=== PATIENT | male | born 1930 | race Caucasian/White ===

== ENCOUNTER 2018-12-09 10:26 | Inpatient (IN) ==
--- NOTE | 2018-12-09 10:43 | ED ---
HPI General Chief Complaint: Chest Pain Stated Complaint: Chest pain Time Seen by Provider: 12/09/18 10:39 Source: patient and EMS Mode of arrival: EMS Limitations: no limitations History of Present Illness HPI narrative: 88-year-old male patient with history of hypertension, high cholesterol, and recent history of anemia, presents to the ER today because he states that he was supposed to get blood a few days ago but they did not have the type of blood he needed, and he woke up this morning having chest discomfort and abdominal discomforts which she currently rates at a 7 out of 10. He denies any black stools or blood in the stools. However, he does not want to talk to me further because he states that he is in pain and be bothered. Modifying Factors: None Associated Signs & Symptoms: Chest discomfort, abdominal discomfort Risk Factors: Recent history of anemia Related Data Home Medications Medication Instructions Recorded Confirmed diltiazem HCl 240 mg PO DAILY 12/06/18 12/09/18 levothyroxine 100 mcg PO DAILY 12/06/18 12/09/18 simvastatin 10 mg PO QPM 12/06/18 12/09/18 tamsulosin 0.4 mg PO HS 12/06/18 12/09/18 Allergies Allergy/AdvReac Type Severity Reaction Status Date / Time No Known Allergies Allergy Verified 12/09/18 10:37 Review of Systems ROS: all other systems reviewed are negative PMFSH History History Provided By: Patient Medical History Medical History Anemia (Acute) BPH (benign prostatic hyperplasia) (Acute) CKD (chronic kidney disease), stage III (Acute) Constipation (Acute) Hyperlipidemia (Acute) Hypertension (Acute) Hypothyroidism (Acute) Osteopenia (Acute) Peripheral neuropathy (Acute) Rhinorrhea (Acute) Skin cancer (Acute) Tortuous aorta (Acute) Social History Social History Substance History: No History of Abuse Smoking Status: Former smoker How Often Do You Have a Drink Containing Alcohol: Never Recent Travel in [facility] within the Last 8 Weeks: No Recent Out of Country Travel within the Last 8 Weeks: No Exam Narrative Exam Narrative: GENERAL: Well-developed elderly male patient currently and moderate distress, mildly agitated, awake, alert. SKIN: Focused skin assessment warm/dry. HEAD: Atraumatic. Normocephalic. EYES: Pupils equal and round. No scleral icterus. No injection or drainage. ENT: No nasal bleeding or discharge. Mucous membranes pink and moist. NECK: Trachea midline. No JVD. CARDIOVASCULAR: Regular rate and rhythm. No murmur appreciated. RESPIRATORY: No accessory muscle use. Clear to auscultation. Breath sounds equal bilaterally. GASTROINTESTINAL: Abdomen soft, non-tender, nondistended. Hepatic and splenic margins not palpable. RECTAL EXAM: No masses or tenderness, stool is brown. Hemoccult negative. MUSCULOSKELETAL: No obvious deformities. No clubbing. No cyanosis. No edema. NEUROLOGICAL: Awake and alert. No obvious cranial nerve deficits. Motor grossly within normal limits. Normal speech. PSYCHIATRIC: Mildly agitated mood and affect; insight and judgment poor. Procedures Hemaprompt Stool Procedural Steps Taken: specimen placed in appropriate test area, developer placed on specimen and control areas and controls appropriately positive and negative Hemaprompt Stool Result: negative Course Initial Documented Vital Signs Temperature 97.7 F 12/09/18 10:32 Pulse Rate 74 12/09/18 10:32 Respiratory Rate 16 12/09/18 10:32 Blood Pressure 123/72 12/09/18 10:32 Pulse Oximetry 100 12/09/18 10:32 Last Documented Vital Signs Temperature 97.7 F 12/09/18 10:32 Pulse Rate 73 12/09/18 11:43 Respiratory Rate 20 12/09/18 11:43 Blood Pressure 112/59 L 12/09/18 11:43 Pulse Oximetry 99 12/09/18 11:43 Medical Decision Making [facility] Narrative Medical decision making narrative: EKG does not show significant ST changes or dysrhythmias. His blood pressure is on the low side. His hemoglobin is 6.9, about the same as it was a few days ago. His Hemoccult is negative. Patient's son-in-law tells me that he has had some history of this anemia and they have not been able to find the source. Apparently he has a fairly unique blood type and antibodies and was not able to get the usual blood transfusion, is waiting until Tuesday to get it. At this point, transfusion was ordered for the patient and my plan would be to admit the patient for further evaluation. CT of the abdomen pelvis was also ordered for the patient for further evaluation. Case is discussed with Dr. Miller for admission. Medical Screen Exam Complete: Yes Emergency Medical Condition: Yes Differential Diagnosis Differential Diagnosis: Symptomatic anemia versus ACS versus dysrhythmias Lab Data Lab results reviewed: Yes I reviewed the patient's lab results. Result diagrams: 12/09/18 10:50 12/09/18 11:25 Lab Results 12/09/18 12/09/18 12/09/18 Range/Units 10:50 10:50 11:25 WBC 6.0 (4.0-11.0) th/mm3 RBC 1.94 L (4.50-5.90) mil/mm3 Hgb 6.9 L* (13.0-17.0) gm/dL Hct 20.6 L* (39.0-51.0) % MCV 105.8 H (80.0-100.0) fL MCH 35.3 H (27.0-34.0) pg MCHC 33.4 (32.0-36.0) % RDW 15.7 (11.6-17.2) % Plt Count 295 (150-450) th/mm3 MPV 7.8 (7.0-11.0) fL Neut % (Auto) 78.1 H (16.0-70.0) % Lymph % (Auto) 8.8 L (9.0-44.0) % Coal % (Auto) 6.8 (0.0-8.0) % Eos % (Auto) 5.2 H (0.0-4.0) % Baso % (Auto) 1.1 (0.0-2.0) % Neut # (Auto) 4.7 (1.8-7.7) th/mm3 Lymph # (Auto) 0.5 L (1.0-4.8) th/mm3 Coal # (Auto) 0.4 (0.0-0.9) th/mm3 Eos # (Auto) 0.3 (0.0-0.4) th/mm3 Baso # (Auto) 0.1 (0.0-0.2) th/mm3 WBC Differential . Differential Comment Auto diff final PT (9.8-11.6) sec INR Ratio APTT (23.4-31.7) sec Sodium 141 (136-145) meq/L Potassium 4.8 (3.5-5.1) meq/L Chloride 108 H (98-107) meq/L Carbon Dioxide 27.0 (21.0-32.0) meq/L Anion Gap 6 (5-15) meq/L BUN 27 H (7-18) mg/dL Creatinine 1.81 H (0.60-1.30) mg/dL Estimated GFR 36 L (>89) mL/min Random Glucose 102 (74-106) mg/dL Calcium 8.2 L (8.5-10.1) mg/dL Total Bilirubin 1.6 H (0.2-1.0) mg/dL AST 13 L (15-37) U/L ALT 11 L (12-78) U/L Alkaline Phosphatase 73 (45-117) U/L Troponin I Less than 0.02 L (0.02-0.05) ng/mL Total Protein 6.3 L (6.4-8.2) g/dL Albumin 3.6 (3.4-5.0) g/dL Blood Type O Positive Blood Type Recheck Not needed Prewarmed Antibody Srcn Positive H MTS Gel Crossmatch See Detail Crossmatch Prewarmed See Detail Bld Prod Order Comment 12/09/18 Range/Units 11:25 WBC (4.0-11.0) th/mm3 RBC (4.50-5.90) mil/mm3 Hgb (13.0-17.0) gm/dL Hct (39.0-51.0) % MCV (80.0-100.0) fL MCH (27.0-34.0) pg MCHC (32.0-36.0) % RDW (11.6-17.2) % Plt Count (150-450) th/mm3 MPV (7.0-11.0) fL Neut % (Auto) (16.0-70.0) % Lymph % (Auto) (9.0-44.0) % Coal % (Auto) (0.0-8.0) % Eos % (Auto) (0.0-4.0) % Baso % (Auto) (0.0-2.0) % Neut # (Auto) (1.8-7.7) th/mm3 Lymph # (Auto) (1.0-4.8) th/mm3 Coal # (Auto) (0.0-0.9) th/mm3 Eos # (Auto) (0.0-0.4) th/mm3 Baso # (Auto) (0.0-0.2) th/mm3 WBC Differential Differential Comment PT 11.1 (9.8-11.6) sec INR 1.1 Ratio APTT 25.4 (23.4-31.7) sec Sodium (136-145) meq/L Potassium (3.5-5.1) meq/L Chloride (98-107) meq/L Carbon Dioxide (21.0-32.0) meq/L Anion Gap (5-15) meq/L BUN (7-18) mg/dL Creatinine (0.60-1.30) mg/dL Estimated GFR (>89) mL/min Random Glucose (74-106) mg/dL Calcium (8.5-10.1) mg/dL Total Bilirubin (0.2-1.0) mg/dL AST (15-37) U/L ALT (12-78) U/L Alkaline Phosphatase (45-117) U/L Troponin I (0.02-0.05) ng/mL Total Protein (6.4-8.2) g/dL Albumin (3.4-5.0) g/dL Blood Type Blood Type Recheck Prewarmed Antibody Srcn MTS Gel Crossmatch Crossmatch Prewarmed Bld Prod Order Comment Imaging Data Attestation: I personally reviewed and interpreted this imaging study as follows : Radiologist's impression: Chest X-Ray 12/09/18 10:39 CONCLUSION: Significant tortuosity of the thoracic aorta and mild enlargement of the cardiac silhouette. The lungs are clear. ECG Data Attestation: I personally reviewed and interpreted this ECG as follows: Interpretation: EKG shows NSR, no ST elevation or depression, and no arrhythmias. No significant T-wave inversions. Discharge Plan Discharge Disposition Patient Disposition: ED Admit(ED Internal Use Only) Discharge Condition Condition: Fair Discharge Order Discharge Orders: ED Use Only Admit Order (Routine); Ordered 12/09/18 Ordered By: Abdulkadir Vela Discharge Details Anticipated Discharge Date: 12/09/18 Diagnosis: Atypical chest pain, Anemia Physicians Team ED Provider: Abdulkadir Vela Rxs /Orders / Referrals /Forms Prescriptions: No Action simvastatin 10 mg Tablet 10 mg PO QPM RF: 0 diltiazem HCl 240 mg Capsule,Extended Release 24 Hr 240 mg PO DAILY RF: 0 levothyroxine 100 mcg Tablet 100 mcg PO DAILY RF: 0 tamsulosin 0.4 mg Capsule 0.4 mg PO HS RF: 0 Discharge Instructions Patient Printed Instructions: Chest Pain (ED) Status ED Status: With Doctor
[2018-12-09 10:59] LABS: Baso # (Auto) 0.1 th/mm3 (0.0-0.2); Baso % (Auto) 1.1 % (0.0-2.0); Eos # (Auto) 0.3 th/mm3 (0.0-0.4); Eos % (Auto) 5.2 % (0.0-4.0); Lymph # (Auto) 0.5 th/mm3 (1.0-4.8); Lymph % (Auto) 8.8 % (9.0-44.0); Mean Corpuscular HGB Conc 33.4 % (32.0-36.0); Mean Corpuscular Hemoglobin 35.3 pg (27.0-34.0); Mean Corpuscular Volume 105.8 fL (80.0-100.0); Mean Platelet Volume 7.8 fL (7.0-11.0); Mono # (Auto) 0.4 th/mm3 (0.0-0.9); Mono % (Auto) 6.8 % (0.0-8.0); Neut # (Auto) 4.7 th/mm3 (1.8-7.7); Neut % (Auto) 78.1 % (16.0-70.0); Platelet Count 295 th/mm3 (150-450); Red Blood Count 1.94 mil/mm3 (4.50-5.90); Red Cell Distribution Width 15.7 % (11.6-17.2)
[2018-12-09] MEDS ORDERED: Sodium Chlor 0.9% Inj 250 ML IV.SIG SCH (11:00)
[2018-12-09 11:02] LABS: Hematocrit 20.6 % (39.0-51.0); Hemoglobin 6.9 gm/dL (13.0-17.0)
--- NOTE | 2018-12-09 11:18 | XR ---
EXAM DATE: 12/09/2018 11:13 AM EST AGE/SEX: 88 years / Male INDICATIONS: Chest pain. Abdominal pain. CLINICAL DATA: This is the patient's initial encounter. Patient reports that signs and symptoms have been present for 1 day and indicates a pain score of 9/10. MEDICAL/SURGICAL HISTORY: None. None. COMPARISON: No prior exams available for comparison. FINDINGS: AP portable upright view of the chest demonstrates severe tortuosity of the thoracic aorta. Heart siz e appears mildly enlarged. Lungs appear clear. Osseous structures are intact. Pulmonary vasculature a ppears normal. CONCLUSION: Significant tortuosity of the thoracic aorta and mild enlargement of the cardiac silhouette. The lung s are clear. Electronically signed by: Bibi Johnston MD Board Certified Radiologist 12/09/2018 11:17 AM SALAS Quinones
[2018-12-09] MEDS ORDERED: Morphine Sulfate Inj 2 MG/ML Vial IV.PUSH ONE (11:26)
[2018-12-09] MEDS ORDERED: Morphine Inj 4 MG/ML Vial IV.PUSH ONE (11:45)
[2018-12-09 11:47] LABS: Activated Partial Thrombo Time 25.4 sec (23.4-31.7); INR 1.1 Ratio; Prothrombin Time 11.1 sec (9.8-11.6)
[2018-12-09 11:55] LABS: Albumin 3.6 g/dL (3.4-5.0); Anion Gap 6 meq/L (5-15); Aspartate Aminotransferase 13 U/L (15-37); Blood Urea Nitrogen 27 mg/dL (7-18); Calcium 8.2 mg/dL (8.5-10.1); Chloride 108 meq/L (98-107); Glomerular Filtration Rate 36 mL/min (>89); Glucose,Random 102 mg/dL (74-106); Potassium 4.8 meq/L (3.5-5.1); Sodium 141 meq/L (136-145)
[2018-12-09 12:00] LABS: Alanine Aminotransferase 11 U/L (12-78); Alkaline Phosphatase 73 U/L (45-117); Total Protein 6.3 g/dL (6.4-8.2)
[2018-12-09] MEDS ORDERED: Acetaminophen 325 MG Tablet PO PRN (13:19)
--- NOTE | 2018-12-09 13:38 | P.HPIM ---
History of Present Illness Primary Care Physician: Golden Faria MD, PhD Chief Complaint: Abdominal pain, chest pain History of Present Illness: Mr. Smith is a pleasant 88 y/o WM with HTN, hyperlipidemia, hypothyroidism, CKD stage 3, anemia and peripheral neuropathy. Pt presented to the ED at [facility] on 12/09/18 with complaints of upper abdominal pain and some mild chest discomfort. He states that this morning around 0700 he woke up with abdominal discomfort but unable to really describe the pain. He does not feel that the abdomen is more distended than usual. Denies any nausea/ vomiting, diarrhea, constipation, fevers or chills. He reports a weight loss of around 20lbs over the last year or so but reports that he does not eat much. He states that he urinates frequently but this is a chronic issue. His chest discomfort is mild on the left side of the chest which does not radiate but it is reproducible with palpation of the chest wall. His labs in the ED noted his Hgb 6.6/Hct 20.8 and MCV 105. The anemia has been an ongoing issue for over the last year or so and has been slowly worsening. His most recent outpt labs on 11/30 noted Hgb was 6.6 with MCV 107. Pt had been planned for an outpt transfusion but this was unable to be arranged as an outpt last week and when the pt developed the abd pain and chest pain today this prompted the ED evaluation. Pt has had several negative FOBT and pt was recommended last year to start Procrit which he did not want to do. Pt has noted increased fatigue with ambulation. Pt denies any palpitations, dizziness, or SOB. Pt has declined outpt colonoscopy previously. Past Medical Hx: HTN Hyperlipidemia Hypothyroidism CKD, stage 3 Anemia Peripheral neuropathy BPH BPV Hx of skin cancer Spinal stenosis Past Surgical Hx: Cataract surgery bilaterally with Dr. Romeo Skin cancer removal Family Hx: Noncontributory Social Hx: Denies any alcohol, tobacco or illicit drug use Diagnosis (1) Anemia: (2) Atypical chest pain: (3) Abdominal pain: (4) Hyperlipidemia: (5) HTN (hypertension): Inpatient Certification Inpatient Certification: I certify that the inpatient services were ordered in accordance with Medicare regulations governing the order. This includes certification that hospital inpatient services are reasonable and necessary and in the case of services not specified as inpatient-only under 42 CFR 419.22(n), that they are appropriately provided as inpatient services in accordance to with the 2-midnight benchmark under 43 CFR 412.3(e) Estimated Total Length of Stay (Days): 2 Plans for Post Hospital Care: Home Medications and Allergies Allergies Allergy/AdvReac Type Severity Reaction Status Date / Time No Known Allergies Allergy Verified 12/09/18 10:37 Home Medications Medication Instructions Recorded Confirmed Type diltiazem HCl 240 mg PO DAILY 12/06/18 12/09/18 History levothyroxine 100 mcg PO DAILY 12/06/18 12/09/18 History simvastatin 10 mg PO QPM 12/06/18 12/09/18 History tamsulosin 0.4 mg PO HS 12/06/18 12/09/18 History Active Medications: Active Medications Acetaminophen (Tylenol) 650 mg PO Q4H PRN PRN Reason: Temp > 100.4 Al Hydroxide/Mg Hydroxide (Milk Of Ting Brownq) 30 ml PO Q12H PRN PRN Reason: Mild Constipation Sodium Chloride (Ns Inj) 250 mls @ 15 mls/hr IV.SIG ONCE TIMOTHY Stop: 12/10/18 03:39 Last Admin: 12/09/18 12:47 Dose: 15 mls/hr Ondansetron HCl (Zofran Inj) 4 mg IV.PUSH Q6H PRN PRN Reason: NAUSEA OR VOMITING Senna/Docusate Sodium (Melissa-Colace) 1 tab PO BID TIMOTHY Sodium Chloride (Ns Flush) 2 ml IV.FLUSH BID TIMOTHY Sodium Chloride (Ns Flush) 2 ml IV.FLUSH PRN PRN PRN Reason: FLUSH AFTER USING IV ACCESS Physical Exam Vital signs: Last Vital Signs Temp 98.2 F 12/09/18 12:59 Pulse 76 12/09/18 12:59 Resp 20 12/09/18 12:59 BP 133/61 12/09/18 12:59 Pulse Ox 100 12/09/18 12:59 Narrative: GENERAL: NAD, Awake and alert SKIN: Warm and dry. HEENT: Atraumatic. Normocephalic. Pupils equal and round. No scleral icterus. No injection or drainage. No nasal bleeding or discharge. Mucous membranes pink and moist. NECK: Trachea midline. No JVD. CARDIO: Regular rate and rhythm. Mild reproducible left chest wall pain with palpation RESP: No accessory muscle use. Clear to auscultation. Breath sounds equal bilaterally. ABD: +BS, soft, non-tender, nondistended. EXT: Extremities without clubbing, cyanosis, or edema. No obvious deformities. NEURO: Awake and alert. No obvious cranial nerve deficits. Motor grossly within normal limits. Five out of 5 muscle strength in the arms and legs. Normal speech. PSYCH: Appropriate mood and affect; insight and judgment normal. Results Labs CBC & Chem 7: 12/09/18 10:50 12/09/18 11:25 Imaging Chest X-Ray 12/09/18 10:39 CONCLUSION: Significant tortuosity of the thoracic aorta and mild enlargement of the cardiac silhouette. The lungs are clear. Caprini VTE Risk Assessment Caprini VTE Risk Assessment: Moderate/High Risk (score >= 2) Caprini Risk Assessment Model: Point Value = 1 Point Value = 2 Point Value = 3 Point Value = 5 Age 41-60 Minor surgery BMI > 25 kg/m2 Swollen legs Varicose veins or History of unexplained or recurrent spontaneous Oral contraceptives or hormone replacement Sepsis (< 1 month) Serious lung disease, including pneumonia (< 1 month) Abnormal pulmonary function Acute myocardial infarction Congestive heart failure (< 1 month) History of inflammatory bowel disease Medical patient at bed rest Age 61-74 Arthroscopic surgery Major open surgery (> 45 min) Laparoscopic surgery (> 45 min) Malignancy Confined to bed (> 72 hours) Immobilizing plaster cast Central venous access Age >= 75 History of VTE Family history of VTE Factor V Leiden Prothrombin [id number] Lupus anticoagulant Anticardiolipin antibodies Elevated serum homocysteine Heparin-induced thrombocytopenia Other congenital or acquired thrombophilia Stroke (< 1 month) Elective arthroplasty Hip, pelvis, or leg fracture Acute spinal cord injury (< 1 month) Prophylaxis Regimen: Total Risk Factor Score Risk Level Prophylaxis Regimen 0-1 Low Early ambulation 2 Moderate Order ONE of the following: *Sequential Compression Device (SCD) *Heparin 5000 units SQ BID 3-4 Higher Order ONE of the following medications: *Heparin 5000 units SQ TID *Enoxaparin/Lovenox 40 mg SQ daily (WT < 150 kg, CrCl > 30 mL/min) *Enoxaparin/Lovenox 30 mg SQ daily (WT < 150 kg, CrCl > 10-29 mL/min) *Enoxaparin/Lovenox 30 mg SQ BID (WT < 150 kg, CrCl > 30 mL/min) AND/OR *Sequential Compression Device (SCD) 5 or more Highest Order ONE of the following medications: *Heparin 5000 units SQ TID (Preferred with Epidurals) *Enoxaparin/Lovenox 40 mg SQ daily (WT < 150 kg, CrCl > 30 mL/min) *Enoxaparin/Lovenox 30 mg SQ daily (WT < 150 kg, CrCl > 10-29 mL/min) *Enoxaparin/Lovenox 30 mg SQ BID (WT < 150 kg, CrCl > 30 mL/min) AND *Sequential Compression Device (SCD) Assessment and Plan Assessment (1) Anemia: Code(s): D64.9 - Anemia, unspecified Status: Chronic (2) Atypical chest pain: Code(s): R07.89 - Other chest pain Status: Acute (3) Abdominal pain: Code(s): R10.9 - Unspecified abdominal pain Status: Acute (4) Hyperlipidemia: Code(s): E78.5 - Hyperlipidemia, unspecified Status: Chronic (5) HTN (hypertension): Code(s): I10 - Essential (primary) hypertension Status: Chronic Plan Worsening, symptomatic anemia Atypical chest pain - Pt is an 88 y/o WM with HTN, hyperlipidemia, hypothyroidism, CKD stage 3, anemia and peripheral neuropathy. Pt presented to the ED at [facility] on 12/09/18 with complaints of upper abdominal pain and some mild chest discomfort. He states that this morning around 0700 he woke up with abdominal discomfort and some mild left chest pain. - His labs in the ED noted his Hgb 6.6/Hct 20.8 and MCV 105. The anemia has been an ongoing issue for over the last year or so and has been slowly worsening. His most recent outpt labs on 11/30/18 noted Hgb was 6.6 with MCV 107. Pt had been planned for an outpt transfusion but this was unable to be arranged as an outpt last week and when the pt developed the abd pain and chest pain today this prompted the ED evaluation. - Check B12, Folate, Iron studies, LDH, Retic count - Pt has 2 units of PRBCs ordered from the ED and is currently receiving his first unit of blood. - He has not had any obvious GIB. Pt has had several outpt negative FOBT and pt was recommended last year to start Procrit which he did not want to do. Pt has declined outpt colonoscopy previously. - Pt does not want any invasive procedures to further evaluate this anemia - Recheck labs in AM - Keep pt on nuclear monitoring technician - Pt had a negative set of CE in the ED. Pt would not want any invasive LHC even if his CE trended up so we will not continue to trend them. 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
[2018-12-09 13:48] LABS: % Iron Saturation 11.9 % (20-50)
[2018-12-09 14:13] LABS: Folate 17.2 ng/mL (3.1-17.5)
--- NOTE | 2018-12-09 14:31 | CT ---
EXAM DATE: 12/09/2018 2:20 PM EST AGE/SEX: 88 years / Male INDICATIONS: Mid abdominal pain. CLINICAL DATA: This is the patient's initial encounter. Patient reports that signs and symptoms have been present for 1 day and indicates a pain score of 8/10. MEDICAL/SURGICAL HISTORY: Anemia. Hypertension. Kidney disease None. ORAL CONTRAST: No oral contrast ingested. RADIATION DOSE: 6.64 CTDI (mGy) COMPARISON: No prior exams available for comparison. TECHNIQUE: Multiple contiguous axial images were obtained through the abdomen and pelvis following b olus infusion of 50 ml Visipaque 320 (iodixanol) nonionic water-soluble contrast as a single exam d ose. No oral contrast ingested. Using automated exposure control and adjustment of the mA and/or kV according to patient size, radiation dose was kept as low as reasonably achievable to obtain optimal diagnostic quality images. DICOM format image data is available electronically for review and compar farideh. FINDINGS: Lower Lungs: Small moderate-sized bilateral pleural effusions with concomitant atelectatic changes on the left. 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 This measures approximately 12.5 cm in length. Liver: The liver has a homogeneous density without space-occupying lesion. There is no dilation of th e biliary tree. Spleen: Spleen is prominent measuring 13.1 cm in the greatest SI dimension. Scattered granulomatous type calcifications in the splenic parenchyma. Pancreas: Unremarkable without mass or calcification. Kidneys: Normal in size and shape. No evidence of mass or hydronephrosis. Adrenal Glands: Unremarkable. Aorta: The aorta and proximal iliac vessels are grossly unremarkable without aneurysmal dilation. Bowel/Mesentery: Scattered diverticula throughout the colon without diverticulitis. There is some no nspecific thickening of the gastric fundus. Abdominal Wall: Intact. Retroperitoneum: No evidence of adenopathy in the retrocrural, para-aortic, or deep pelvic regions. Bladder: Contours are smooth. Reproductive Organs: Prominent prostate measuring 5.7 cm in diameter. Inguinal: Small bilateral inguinal hernias only containing fat measuring 2.4 cm on the right and 2.8 cm on the left Bony Structures: Unremarkable. Post Contrast: No abnormal areas of enhancement seen. CONCLUSION: 1. 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 Aneurysm extends over a 12 cm length. No infrarenal component. 2. Small moderate-sized bilateral pleural effusions with concomitant atelectatic changes in the left base. 3. Small bilateral inguinal hernias only containing fat. 4. Scattered diverticula throughout the colon without diverticulitis. 5. Mural thickening of the gastric fundus. Findings are nonspecific. Can be associated with gastriti s or simple gastric decompression. Neoplasm cannot be excluded, however. Electronically signed by: Dayday Griffin MD Board Certified Radiologist 12/09/2018 2:30 PM EST
[2018-12-09] MEDS ORDERED: Morphine Inj 4 MG/ML Vial IV.PUSH PRN ×2 (15:05→15:06)
[2018-12-09] MEDS: Pantoprazole Inj 40 MG Vial IV.PUSH SCH (15:16)
[2018-12-09] MEDS ORDERED: HYDROmorphone PF Inj 0.5 MG/0.5 ML Syringe IV.PUSH PRN (16:58)
[2018-12-09] MEDS: Simethicone 125 MG Chew Tablet PO SCH (17:59)
[2018-12-09] MEDS: Senna/Docusate Sodium 8.6/50 MG Tablet PO SCH (20:30)
--- NOTE | 2018-12-09 20:33 | P.CONVS ---
History of Present Illness Service: Vascular Surgery Consult date: 12/09/18 Requesting Physician: Steve Miller Reason for Consult: TAAA Primary Care Provider: Golden Faria MD, PhD Chief Complaint: Abdominal pain, chest pain History of Present Illness: 88 yo male who woke up this morning at 7a with abdominal pain, not related to po intake. Pain has persisted but appears comfortable now. 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 It is not ruptured radiographically. The patient also has a history of CRI and anemia, currently getting PRBC transfusion. He very politely tells me that he is "not getting any operation". Of note, he lives independently and walks daily. Review of Systems Constitutional: Denies fever(s) Cardiovascular: Denies chest pain Gastrointestinal: Reports abdominal pain PMFSH - History History Provided By: Patient - Medical History Medical History: Medical History (Last Reviewed 12/09/18 @ 20:29 by Nabil Santoyo MD) Anemia BPH (benign prostatic hyperplasia) CKD (chronic kidney disease), stage III Constipation Hyperlipidemia Hypertension Hypothyroidism Osteopenia Peripheral neuropathy Rhinorrhea Skin cancer Tortuous aorta - Surgical History Surgical History: Surgical History (Last Reviewed 12/09/18 @ 20:29 by Nabil Santoyo MD) History of cataract removal with insertion of prosthetic lens - Tobacco History Second Hand Smoke Exposure: No Smoking Status: Never smoker - Alcohol History How Often Do You Have a Drink Containing Alcohol: Never - Substance Use History Substance History: No History of Abuse - Travel History Recent Travel in the [place] Within the Last 8 Weeks: No Recent Travel Out of the Country Within the Last 8 Weeks: No - Immunization History Tetanus Immunization: Unsure Hx Influenza Vaccine This Season: Yes Medications and Allergies Active Medications: Active Medications Acetaminophen (Tylenol) 650 mg PO Q4H PRN PRN Reason: Temp > 100.4 Al Hydroxide/Mg Hydroxide (Milk Of Magnesia Liq) 30 ml PO Q12H PRN PRN Reason: Mild Constipation Diltiazem HCl (Cardizem Cd 24hr) 240 mg PO DAILY [facility] Hydromorphone HCl (Dilaudid Pf Inj) 0.5 mg IV.PUSH Q4H PRN PRN Reason: pain 3-10 Sodium Chloride (Ns Inj) 250 mls @ 15 mls/hr IV.SIG ONCE [facility] Stop: 12/10/18 03:39 Last Admin: 12/09/18 12:47 Dose: 15 mls/hr Levothyroxine Sodium (Synthroid) 100 mcg PO DAILY@0600 [facility] Ondansetron HCl (Zofran Inj) 4 mg IV.PUSH Q6H PRN PRN Reason: NAUSEA OR VOMITING Pantoprazole Sodium (Protonix Inj) 40 mg IV.PUSH Q12H [facility] Last Admin: 12/09/18 15:16 Dose: 40 mg Pravastatin Sodium (Pravachol) 20 mg PO QPM [facility] Last Admin: 12/09/18 17:24 Dose: 20 mg Senna/Docusate Sodium (Melissa-Colace) 1 tab PO BID [facility] Simethicone (Phazyme Chew) 125 mg PO TID [facility] Last Admin: 12/09/18 17:59 Dose: 125 mg Sodium Chloride (Ns Flush) 2 ml IV.FLUSH BID [facility] Sodium Chloride (Ns Flush) 2 ml IV.FLUSH PRN PRN PRN Reason: FLUSH AFTER USING IV ACCESS Tamsulosin HCl (Flomax) 0.4 mg PO [facility] Allergies Allergy/AdvReac Type Severity Reaction Status Date / Time No Known Allergies Allergy Verified 12/09/18 10:37 Home Medications Medication Instructions Recorded Confirmed Type diltiazem HCl 240 mg PO DAILY 12/06/18 12/09/18 History levothyroxine 100 mcg PO DAILY 12/06/18 12/09/18 History simvastatin 10 mg PO QPM 12/06/18 12/09/18 History tamsulosin 0.4 mg PO HS 12/06/18 12/09/18 History Physical Exam Vital Signs / I&O: Vital Signs 12/09/18 10:32 12/09/18 10:50 12/09/18 11:43 Temperature 97.7 F Pulse Rate 74 68 73 Respiratory Rate 16 20 Blood Pressure 123/72 112/59 L Pulse Oximetry 100 100 99 12/09/18 12:42 12/09/18 12:59 12/09/18 14:29 Temperature 97.6 F 98.2 F 97.8 F Pulse Rate 81 76 83 Respiratory Rate 20 20 16 Blood Pressure 127/58 L 133/61 156/75 H Pulse Oximetry 99 100 100 12/09/18 14:35 12/09/18 14:47 12/09/18 16:00 Temperature 97.8 F 97.2 F L Pulse Rate 81 80 77 Respiratory Rate 18 18 Blood Pressure 154/78 H 161/74 H Pulse Oximetry 100 98 12/09/18 16:38 12/09/18 16:54 Temperature 97.2 F L 97 F L Pulse Rate 77 80 Respiratory Rate 18 18 Blood Pressure 161/74 H 134/65 Pulse Oximetry 98 100 Intake & Output 12/09/18 12/09/18 12/10/18 06:59 18:59 06:59 Intake Total 0 / 0 Output Total 200 / 200 Balance -200 / -200 Weight 72.575 kg Intake: Intake (Blood Product) Amt 0 / 0 Rbc As-3 Leukoreduced Unit 0 / 0 [id number] Rbc As-3 Leukoreduced Unit 0 / 0 [id number] Output: Urine 200 / 200 Neuro: alert, no distress HEENT: NC/AT Neck: no JVD Heart: reg rate Lungs: nonlabored breathing Abdomen: slightly distended, no TTP no peritonitis Vascular: palp femoral Laboratory Results - last 24 hr 12/09/18 12/09/18 12/09/18 10:50 10:50 10:50 WBC 6.0 RBC 1.94 L Hgb 6.9 L* Hct 20.6 L* MCV 105.8 H MCH 35.3 H MCHC 33.4 RDW 15.7 Plt Count 295 MPV 7.8 Neut % (Auto) 78.1 H Lymph % (Auto) 8.8 L [place] % (Auto) 6.8 Eos % (Auto) 5.2 H Baso % (Auto) 1.1 Neut # (Auto) 4.7 Lymph # (Auto) 0.5 L [place] # (Auto) 0.4 Eos # (Auto) 0.3 Baso # (Auto) 0.1 WBC Differential . Differential Comment Auto diff final Retic Count 7.0 H Absolute Retic 137.0 PT INR APTT Sodium Potassium Chloride Carbon Dioxide Anion Gap BUN Creatinine Estimated GFR Random Glucose Calcium Iron TIBC % Saturation Ferritin Total Bilirubin AST ALT Alkaline Phosphatase Lactate Dehydrogenase Troponin I Total Protein Albumin Vitamin B12 Folate Blood Type O Positive Blood Type Recheck Not needed Prewarmed Antibody Srcn Positive H MTS Gel Crossmatch See Detail Crossmatch Prewarmed See Detail Bld Prod Order Comment 12/09/18 12/09/18 12/09/18 11:25 11:25 11:25 WBC RBC Hgb Hct MCV MCH MCHC RDW Plt Count MPV Neut % (Auto) Lymph % (Auto) [place] % (Auto) Eos % (Auto) Baso % (Auto) Neut # (Auto) Lymph # (Auto) [place] # (Auto) Eos # (Auto) Baso # (Auto) WBC Differential Differential Comment Retic Count Absolute Retic PT 11.1 INR 1.1 APTT 25.4 Sodium 141 Potassium 4.8 Chloride 108 H Carbon Dioxide 27.0 Anion Gap 6 BUN 27 H Creatinine 1.81 H Estimated GFR 36 L Random Glucose 102 Calcium 8.2 L Iron 27 L TIBC 227 L % Saturation 11.9 L Ferritin 257 Total Bilirubin 1.6 H AST 13 L ALT 11 L Alkaline Phosphatase 73 Lactate Dehydrogenase 191 Troponin I Less than 0.02 L Total Protein 6.3 L Albumin 3.6 Vitamin B12 417 Folate 17.2 Blood Type Blood Type Recheck Prewarmed Antibody Srcn MTS Gel Crossmatch Crossmatch Prewarmed Bld Prod Order Comment Impressions Chest X-Ray 12/09/18 10:39 CONCLUSION: Significant tortuosity of the thoracic aorta and mild enlargement of the cardiac silhouette. The lungs are clear. Abdomen/Pelvis CT 12/09/18 11:26 CONCLUSION: 1. 7.1 cm aneurysm of the aorta at the junction of the thoracic and abdominal components near the diaphragmatic hiatus. Aneurysm extends over a 12 cm length. No infrarenal component. 2. Small moderate-sized bilateral pleural effusions with concomitant atelectatic changes in the left base. 3. Small bilateral inguinal hernias only containing fat. 4. Scattered diverticula throughout the colon without diverticulitis. 5. Mural thickening of the gastric fundus. Findings are nonspecific. Can be associated with gastritis or simple gastric decompression. Neoplasm cannot be excluded, however. 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 It appears intact to me and doesn't seem to be the cause of his abdominal pain, which seems more gastrointestinal in nature. 1. Continue GI work-up 2. F/U Hct 3. Would recommend a CTA C/A/P after hydration and recheck of creatinine. However, open surgical repair carries a prohibitive mortality. He may be a candidate for a fenestrated endovascular repair in [place], which I can help coordinate but only if he desires. Will discuss options with his family and the patient. Nabil Santoyo MD FACS [facility] [phone]
[2018-12-10] MEDS: Pantoprazole Inj 40 MG Vial IV.PUSH SCH ×2 (04:28→17:18)
[2018-12-10] MEDS: Levothyroxine 100 MCG Tablet PO SCH (06:11)
[2018-12-10] MEDS: Senna/Docusate Sodium 8.6/50 MG Tablet PO SCH ×2 (08:38→20:21)
[2018-12-10] MEDS: dilTIAZem CD 240 MG Capsule PO SCH (08:38)
[2018-12-10] MEDS: Simethicone 125 MG Chew Tablet PO SCH ×3 (08:39→17:18)
--- NOTE | 2018-12-10 10:36 | XR ---
EXAM DATE: 12/10/2018 10:23 AM EST AGE/SEX: 88 years / Male INDICATIONS: Abdominal pain. CLINICAL DATA: This is the patient's initial encounter. Patient reports that signs and symptoms have been present for 2 days and indicates a pain score of 8/10. MEDICAL/SURGICAL HISTORY: None. None. COMPARISON: [facility] [place], CT ABDOMEN & PELVIS W CONTRAST, 12/09/2018. . FINDINGS: Stool-filled cecum with air identified throughout the colon and within nondilated small bowel. Soft tissues and osseous structures are unremarkable. CONCLUSION: Findings within the large and small bowel consistent with ileus. Electronically signed by: Bibi Johnston MD Board Certified Radiologist 12/10/2018 10:35 AM SALAS Quinones
[2018-12-10 10:46] LABS: Baso # (Auto) 0.1 th/mm3 (0.0-0.2); Baso % (Auto) 1.1 % (0.0-2.0); Eos # (Auto) 0.2 th/mm3 (0.0-0.4); Eos % (Auto) 2.4 % (0.0-4.0); Hematocrit 25.4 % (39.0-51.0); Hemoglobin 8.7 gm/dL (13.0-17.0); Lymph # (Auto) 0.3 th/mm3 (1.0-4.8); Lymph % (Auto) 4.5 % (9.0-44.0); Mean Corpuscular HGB Conc 34.3 % (32.0-36.0); Mean Corpuscular Volume 98.9 fL (80.0-100.0); Mean Platelet Volume 7.7 fL (7.0-11.0); Mono # (Auto) 0.4 th/mm3 (0.0-0.9); Mono % (Auto) 5.7 % (0.0-8.0); Neut # (Auto) 5.7 th/mm3 (1.8-7.7); Neut % (Auto) 86.3 % (16.0-70.0); Platelet Count 261 th/mm3 (150-450); Red Blood Count 2.57 mil/mm3 (4.50-5.90); Red Cell Distribution Width 18.1 % (11.6-17.2); White Blood Count 6.6 th/mm3 (4.0-11.0)
--- NOTE | 2018-12-10 11:08 | P.PNVS ---
Subjective Subjective/Hospital Course: Pt with persistent abdominal pain and gaseous distension. No acute distress. Again, reiterated that he doesn't want any major aortic intervention Objective Vital Signs / I&O: Vital Signs 12/09/18 11:43 12/09/18 12:42 12/09/18 12:59 Temperature 97.6 F 98.2 F Pulse Rate 73 81 76 Respiratory Rate 20 20 20 Blood Pressure 112/59 L 127/58 L 133/61 Pulse Oximetry 99 99 100 12/09/18 14:29 12/09/18 14:35 12/09/18 14:47 Temperature 97.8 F 97.8 F Pulse Rate 83 81 80 Respiratory Rate 16 18 Blood Pressure 156/75 H 154/78 H Pulse Oximetry 100 100 12/09/18 16:00 12/09/18 16:38 12/09/18 16:54 Temperature 97.2 F L 97.2 F L 97 F L Pulse Rate 77 77 80 Respiratory Rate 18 18 18 Blood Pressure 161/74 H 161/74 H 134/65 Pulse Oximetry 98 98 100 12/09/18 20:00 12/09/18 20:35 12/09/18 23:34 Temperature 97.4 F L Pulse Rate 80 83 Respiratory Rate 17 Blood Pressure 156/76 H Pulse Oximetry 100 98 12/10/18 00:00 12/10/18 04:00 12/10/18 07:42 Temperature 98.0 F 97.3 F L Pulse Rate 83 81 Respiratory Rate 17 17 18 Blood Pressure 147/80 H 150/82 H Pulse Oximetry 97 96 12/10/18 08:00 Temperature 98.0 F Pulse Rate 84 Respiratory Rate 20 Blood Pressure 144/80 H Pulse Oximetry 97 Intake & Output 12/09/18 12/10/18 12/10/18 18:59 06:59 18:59 Intake Total 0 / 0 0 / 0 Output Total 200 / 200 275 / 275 Balance -200 / -200 -275 / -275 Weight 72.575 kg 68.1 kg Intake: IV 0 / 0 NS Inj 250 ML @ 15 mls/hr IV. 0 / 0 SIG ONCE [facility] Rx#:[id number] Oral 0 / 0 Intake (Blood Product) Amt 0 / 0 Rbc As-3 Leukoreduced Unit 0 / 0 [id number] Rbc As-3 Leukoreduced Unit 0 / 0 [id number] Output: Urine 200 / 200 275 / 275 Other: # Bowel Movements 0 Physical Exam: resting comfortably no distress abdomen distended, tympanitic but no rebound Laboratory Results - last 24 hr 12/09/18 12/09/18 12/09/18 10:50 10:50 11:25 WBC RBC Hgb Hct MCV MCH MCHC RDW Plt Count MPV Neut % (Auto) Lymph % (Auto) [place] % (Auto) Eos % (Auto) Baso % (Auto) Neut # (Auto) Lymph # (Auto) [place] # (Auto) Eos # (Auto) Baso # (Auto) WBC Differential Differential Comment Retic Count 7.0 H Absolute Retic 137.0 PT INR APTT Sodium 141 Potassium 4.8 Chloride 108 H Carbon Dioxide 27.0 Anion Gap 6 BUN 27 H Creatinine 1.81 H Estimated GFR 36 L Random Glucose 102 Calcium 8.2 L Iron TIBC % Saturation Ferritin Total Bilirubin 1.6 H AST 13 L ALT 11 L Alkaline Phosphatase 73 Lactate Dehydrogenase Troponin I Less than 0.02 L Total Protein 6.3 L Albumin 3.6 Vitamin B12 Folate Blood Type O Positive Blood Type Recheck Not needed Prewarmed Antibody Srcn Positive H MTS Gel Crossmatch See Detail Crossmatch Prewarmed See Detail Bld Prod Order Comment 12/09/18 12/09/18 12/10/18 11:25 11:25 10:35 WBC 6.6 RBC 2.57 L Hgb 8.7 L Hct 25.4 L MCV 98.9 D MCH 34.0 MCHC 34.3 RDW 18.1 H Plt Count 261 MPV 7.7 Neut % (Auto) 86.3 H Lymph % (Auto) 4.5 L [place] % (Auto) 5.7 Eos % (Auto) 2.4 Baso % (Auto) 1.1 Neut # (Auto) 5.7 Lymph # (Auto) 0.3 L [place] # (Auto) 0.4 Eos # (Auto) 0.2 Baso # (Auto) 0.1 WBC Differential . Differential Comment Auto diff final Retic Count Absolute Retic PT 11.1 INR 1.1 APTT 25.4 Sodium Potassium Chloride Carbon Dioxide Anion Gap BUN Creatinine Estimated GFR Random Glucose Calcium Iron 27 L TIBC 227 L % Saturation 11.9 L Ferritin 257 Total Bilirubin AST ALT Alkaline Phosphatase Lactate Dehydrogenase 191 Troponin I Total Protein Albumin Vitamin B12 417 Folate 17.2 Blood Type Blood Type Recheck Prewarmed Antibody Srcn MTS Gel Crossmatch Crossmatch Prewarmed Bld Prod Order Comment Impressions Chest X-Ray 12/09/18 10:39 CONCLUSION: Significant tortuosity of the thoracic aorta and mild enlargement of the cardiac silhouette. The lungs are clear. Abdomen/Pelvis CT 12/09/18 11:26 CONCLUSION: 1. 7.1 cm aneurysm of the aorta at the junction of the thoracic and abdominal components near the diaphragmatic hiatus. Aneurysm extends over a 12 cm length. No infrarenal component. 2. Small moderate-sized bilateral pleural effusions with concomitant atelectatic changes in the left base. 3. Small bilateral inguinal hernias only containing fat. 4. Scattered diverticula throughout the colon without diverticulitis. 5. Mural thickening of the gastric fundus. Findings are nonspecific. Can be associated with gastritis or simple gastric decompression. Neoplasm cannot be excluded, however. Abdomen X-Ray 12/10/18 06:00 CONCLUSION: Findings within the large and small bowel consistent with ileus. 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 It appears intact to me and doesn't seem to be the cause of his abdominal pain, which seems more gastrointestinal in nature. KUB this morning shows ileus 1. Continue GI work-up for ileus. 2. Good response to PRBC 3. Ideally, I'd get a CTA C/A/P and evaluate for fenestrated endovascular repair. However, the patient and his son-in-law (spoken to with patient permission) do not want any intervention, so would not subject patient to the IV contrast required for a test that won't change number operator. Nabil Santoyo MD FACS [facility] [phone]
[2018-12-10 11:12] LABS: Albumin 3.8 g/dL (3.4-5.0); Anion Gap 7 meq/L (5-15); Aspartate Aminotransferase 14 U/L (15-37); Blood Urea Nitrogen 24 mg/dL (7-18); Calcium 8.6 mg/dL (8.5-10.1); Carbon Dioxide 24.2 meq/L (21.0-32.0); Chloride 108 meq/L (98-107); Glomerular Filtration Rate 40 mL/min (>89); Glucose,Random 103 mg/dL (74-106); Potassium 4.5 meq/L (3.5-5.1); Sodium 139 meq/L (136-145)
[2018-12-10 11:13] LABS: Alanine Aminotransferase 13 U/L (12-78)
[2018-12-10 11:15] LABS: Alkaline Phosphatase 87 U/L (45-117); Total Protein 6.7 g/dL (6.4-8.2)
--- NOTE | 2018-12-10 11:38 | ECG ---
Date Performed: 12/09/2018 Time Performed: 10:41:51 PTAGE: 88 years EKG: Sinus rhythm NORMAL ECG Since the PREVIOUS TRACING , no significant change noted PREVIOUS TRACIN10/27/2013 09.42.50 DOCTOR: Cari Miller Interpretating Date/Time 12/10/2018 11:37:26
--- NOTE | 2018-12-10 13:13 | P.PNIM ---
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 Pt presented to the ED at [facility] [place] on 12/09/18 with complaints of upper abdominal pain and some mild chest discomfort. He states that this morning around 0700 he woke up with abdominal discomfort and some mild left chest pain. - His labs in the ED noted his Hgb 6.6/Hct 20.8 and MCV 105. The anemia has been an ongoing issue for over the last year or so and has been slowly worsening. His most recent outpt labs on 11/30/18 noted Hgb was 6.6 with MCV 107. Pt had been planned for an outpt transfusion but this was unable to be arranged as an outpt last week and when the pt developed the abd pain and chest pain today this prompted the ED evaluation. - He has not had any obvious GIB. Pt has had several outpt negative FOBT and pt was recommended last year to start Procrit which he did not want to do. Pt has declined outpt colonoscopy previously. - Pt does not want any invasive procedures to further evaluate this anemia - Pt had a negative set of CE in the ED. Pt would not want any invasive LHC even if his CE trended up so we will not continue to trend them. - Supportive care Pt abdomen pain seems more related to ileus/constipation/gas. discussed TAAA with Dr Santoyo. not leaking. pt not interested in any intervention. give dose relistor( had alot of narcotic pain med yesterday). mag citrate. s/p 2 doses lactulose/dulcolax yesterday and no result. ambulate repeat kub in AM hgb rising appropriately. check in AM for stability. updated family. FAMILY SON IN LAW AND DAUGHTER CONFIRM PT IS DNR. 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
[2018-12-10] MEDS ORDERED: Magnesium Citrate Liq 300 ML Bottle PO ONE (13:30)
[2018-12-10] MEDS: Methylnaltrexone Inj 12 MG/0.6 ML Vial SQ ONE ×2 (14:38→14:40)
[2018-12-11] MEDS: Levothyroxine 100 MCG Tablet PO SCH (05:14)
[2018-12-11] MEDS: Pantoprazole Inj 40 MG Vial IV.PUSH SCH ×2 (05:14→15:47)
[2018-12-11 08:21] LABS: Hematocrit 25.1 % (39.0-51.0); Hemoglobin 8.8 gm/dL (13.0-17.0)
[2018-12-11] MEDS: dilTIAZem CD 240 MG Capsule PO SCH (08:24)
[2018-12-11] MEDS: Senna/Docusate Sodium 8.6/50 MG Tablet PO SCH ×2 (08:24→21:36)
[2018-12-11] MEDS: Simethicone 125 MG Chew Tablet PO SCH ×3 (08:24→17:30)
--- NOTE | 2018-12-11 09:38 | XR ---
EXAM DATE: 12/11/2018 9:22 AM EST AGE/SEX: 88 years / Male INDICATIONS: Ileus CLINICAL DATA: This is the patient's initial encounter. Patient reports that signs and symptoms have been present for 2 days and indicates a pain score of 5/10. MEDICAL/SURGICAL HISTORY: . constipation for 2 days None. [place] [facility] [place]. [facility] [place]EL[place] CONTRAST, 12/09/2018. . FINDINGS: 2 supine frontal views of the abdomen demonstrate diffuse gaseous dilatation of the small bowel and colon without a transition point appreciated. There is a prominent amount of stool in the right colon . No definite free air is visualized on this supine view. No organomegaly or concerning calcification s are seen. There is opacity at the right lung base. Bones demonstrate no acute abnormality. CONCLUSION: 1. Diffuse gaseous dilatation of the small bowel and colon without a transition point. The appearanc e favors ileus as the etiology. Consider follow-up to confirm resolution. 2. Mild airspace opacity at the right base could represent atelectasis or consolidation. Electronically signed by: Jason Booth MD Board Certified Radiologist 12/11/2018 9:37 AM EST
--- NOTE | 2018-12-11 17:50 | P.PNIM ---
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 Pt presented to the ED at [facility] [place]/09/18 with complaints of upper abdominal pain and some mild chest discomfort. He states that this morning around 0700 he woke up with abdominal discomfort and some mild left chest pain. - His labs in the ED noted his Hgb 6.6/Hct 20.8 and MCV 105. The anemia has been an ongoing issue for over the last year or so and has been slowly worsening. His most recent outpt labs on 11/30/18 noted Hgb was 6.6 with MCV 107. Pt had been planned for an outpt transfusion but this was unable to be arranged as an outpt last week and when the pt developed the abd pain and chest pain today this prompted the ED evaluation. - He has not had any obvious GIB. Pt has had several outpt negative FOBT and pt was recommended last year to start Procrit which he did not want to do. Pt has declined outpt colonoscopy previously. - Pt does not want any invasive procedures to further evaluate this anemia - Pt had a negative set of CE in the ED. Pt would not want any invasive LHC even if his CE trended up so we will not continue to trend them. - Supportive care Pt abdomen pain seems more related to ileus/constipation/gas. discussed TAAA with Dr Santoyo. not leaking. pt not interested in any intervention. give dose relistor( had alot of narcotic pain med yesterday). mag citrate. s/p 2 doses lactulose/dulcolax yesterday and no result. ambulate repeat kub in AM hgb rising appropriately. check in AM for stability. updated family. FAMILY SON IN LAW AND DAUGHTER CONFIRM PT IS DNR. 12/11/18 - Kub (12/11) --> ileus - dose relistor - repeat KUB in AM - Case d/w daughter/son-in-law, Dr. 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
[2018-12-11] MEDS ORDERED: Methylnaltrexone Inj 12 MG/0.6 ML Vial SQ ONE (18:30)
[2018-12-11] MEDS ORDERED: Bisacodyl 10 MG Supp RECTAL ONE (18:30)
[2018-12-11] MEDS: KCL 20 mEq/NACL 0.45% Inj 1,000 ML IV.CONT SCH (18:54)
[2018-12-12] MEDS: Pantoprazole Inj 40 MG Vial IV.PUSH SCH ×2 (05:29→16:06)
[2018-12-12] MEDS: Levothyroxine 100 MCG Tablet PO SCH (05:29)
[2018-12-12 05:43] LABS: Baso % (Auto) 0.6 % (0.0-2.0); Eos # (Auto) 0.1 th/mm3 (0.0-0.4); Eos % (Auto) 1.4 % (0.0-4.0); Hematocrit 23.9 % (39.0-51.0); Lymph # (Auto) 0.3 th/mm3 (1.0-4.8); Lymph % (Auto) 4.4 % (9.0-44.0); Mean Corpuscular HGB Conc 33.6 % (32.0-36.0); Mean Corpuscular Hemoglobin 33.7 pg (27.0-34.0); Mean Corpuscular Volume 100.3 fL (80.0-100.0); Mono # (Auto) 0.4 th/mm3 (0.0-0.9); Mono % (Auto) 6.5 % (0.0-8.0); Neut # (Auto) 5.9 th/mm3 (1.8-7.7); Neut % (Auto) 87.1 % (16.0-70.0); Platelet Count 238 th/mm3 (150-450); Red Blood Count 2.38 mil/mm3 (4.50-5.90); Red Cell Distribution Width 16.6 % (11.6-17.2); White Blood Count 6.7 th/mm3 (4.0-11.0)
[2018-12-12 06:13] LABS: Calcium 8.1 mg/dL (8.5-10.1); Carbon Dioxide 27.6 meq/L (21.0-32.0); Magnesium 2.6 mg/dL (1.5-2.5); Potassium 4.3 meq/L (3.5-5.1)
[2018-12-12] MEDS: Senna/Docusate Sodium 8.6/50 MG Tablet PO SCH ×2 (08:00→20:19)
[2018-12-12] MEDS: dilTIAZem CD 240 MG Capsule PO SCH (08:01)
[2018-12-12] MEDS: Simethicone 125 MG Chew Tablet PO SCH ×3 (08:01→17:31)
--- NOTE | 2018-12-12 09:26 | XR ---
EXAM DATE: 12/12/2018 9:23 AM EST AGE/SEX: 88 years / Male INDICATIONS: Ileus. CLINICAL DATA: This is the patient's subsequent encounter. Patient reports that signs and symptoms h ave been present for 3 days and indicates a pain score of 0/10. MEDICAL/SURGICAL HISTORY: None. None. COMPARISON: [facility] [place], ABDOMEN 1V KUB, 12/11/2018. . FINDINGS: There is diffuse gaseous distention of both small and large bowel loops again noted. EKG leads overl ie the chest and upper abdomen. Bone density is diminished. CONCLUSION: Diffuse gaseous distention of bowel loops again noted. Electronically signed by: Aj Young MD Board Certified Radiologist 12/12/2018 9:24 AM EST
[2018-12-12] MEDS: KCL 20 mEq/NACL 0.45% Inj 1,000 ML IV.CONT SCH (09:45)
--- NOTE | 2018-12-12 14:40 | P.PNIM ---
Subjective Interval history: Pt reports that he had a small BM last night, but I don't see this verified in [facility]. 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 Pt presented to the ED at [facility] [place] on 12/09/18 with complaints of upper abdominal pain and some mild chest discomfort. He states that this morning around 0700 he woke up with abdominal discomfort and some mild left chest pain. - His labs in the ED noted his Hgb 6.6/Hct 20.8 and MCV 105. The anemia has been an ongoing issue for over the last year or so and has been slowly worsening. His most recent outpt labs on 11/30/18 noted Hgb was 6.6 with MCV 107. Pt had been planned for an outpt transfusion but this was unable to be arranged as an outpt last week and when the pt developed the abd pain and chest pain today this prompted the ED evaluation. - He has not had any obvious GIB. Pt has had several outpt negative FOBT and pt was recommended last year to start Procrit which he did not want to do. Pt has declined outpt colonoscopy previously. - Pt does not want any invasive procedures to further evaluate this anemia - Pt had a negative set of CE in the ED. Pt would not want any invasive LHC even if his CE trended up so we will not continue to trend them. - Supportive care - Dr. Miller discussed TAAA with Dr Santoyo. not leaking. pt not interested in any intervention. - Pt refused relistor 12/10 relistor( had alot of narcotic pain meds 12/09). - Pt received mag citrate. s/p 2 doses lactulose/dulcolax and no result. - encourage ambulation - repeat KUB (12/12) --> ileus/gasseous distension - Narcotics stopped - Pt recieved relistor 12/11 - Repeat relistor 12/12 - start reglan 5mg IV q8h - will repeat KUB 12/13 - Hg stable - Consult GI, decompressive colonoscopy? - daughter & son-in-law, Dr. 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
--- NOTE | 2018-12-12 15:44 | P.CONGI ---
History of Present Illness Consult date: 12/12/18 Consult reason: Constipation Chief complaint: Chest pain/anemia History of Present Illness: This is a 88 yo M with PMH significant for hypertension, hyperlipidemia, hypothyroidism, CKD stage 3, anemia and peripheral neuropathy. Pt presented to the ER on [place] on 12/09/18 with complaints of abdominal pain that woke him up out of his sleep. Pt states the pain is located across his entire abdomen, it is constant with intermittent worsening intensity. Denies any associated nausea or vomiting. Does report chronic constipation and has to strain with all of his BMs. He does not take anything for his constipation. He had a small BM yesterday. Imaging consistent with constipation and gaseous distention of his bowel, he has received a Dulcolax suppository and Melissa-Colace with no relief of symptoms. He has Reglan, Relistor and Milk of Mag ordered but this has not been given. Does not think he has ever had a colonoscopy in the past. Denies unintentional weight loss. Denies blood in his stools, outpatient Hemoccult stool negative. No known family history of colon cancer. <Nalini Lopez - Last Filed: 12/12/18 15:31> Review of Systems Constitutional: Denies weight loss Gastrointestinal: Reports abdominal pain, Reports constipation, Denies black, tarry stools, Denies bright, red blood in stools, Denies nausea, Denies vomiting <Nalini Lopez - Last Filed: 12/12/18 15:31> PMFSH - History History Provided By: Patient - Medical History Medical History: Medical History (Last Reviewed 12/11/18 @ 07:52 by Prachi Stoll) Anemia BPH (benign prostatic hyperplasia) CKD (chronic kidney disease), stage III Constipation Hyperlipidemia Hypertension Hypothyroidism Osteopenia Peripheral neuropathy Rhinorrhea Skin cancer Tortuous aorta - Surgical History Surgical History: Surgical History (Last Reviewed 12/11/18 @ 07:52 by Prachi Stoll) History of cataract removal with insertion of prosthetic lens - Tobacco History Second Hand Smoke Exposure: No Smoking Status: Never smoker - Alcohol History How Often Do You Have a Drink Containing Alcohol: Never - Substance Use History Substance History: No History of Abuse - Travel History Recent Travel in the [place] Within the Last 8 Weeks: No Recent Travel Out of the Country Within the Last 8 Weeks: No - Immunization History Tetanus Immunization: Unsure Hx Influenza Vaccine This Season: Yes <Nalini Lopez - Last Filed: 12/12/18 15:31> - Medical History Medical History: Medical History (Last Reviewed 12/11/18 @ 07:52 by Prachi Stoll) Anemia BPH (benign prostatic hyperplasia) CKD (chronic kidney disease), stage III Constipation Hyperlipidemia Hypertension Hypothyroidism Osteopenia Peripheral neuropathy Rhinorrhea Skin cancer Tortuous aorta - Surgical History Surgical History: Surgical History (Last Reviewed 12/11/18 @ 07:52 by Prachi Stoll) History of cataract removal with insertion of prosthetic lens <Sharif Mack - Last Filed: 12/12/18 15:50> Medications and Allergies Active Medications: Active Medications Acetaminophen (Tylenol) 650 mg PO Q4H PRN PRN Reason: Temp > 100.4 Al Hydroxide/Mg Hydroxide (Milk Of Magnpan Liq) 30 ml PO Q12H PRN PRN Reason: Mild Constipation Diltiazem HCl (Cardizem Cd 24hr) 240 mg PO DAILY [facility] Last Admin: 12/12/18 08:01 Dose: 240 mg Potassium Chloride/Sodium Chloride (Potassium Chlor 20 Meq/Nacl 0.45% Inj) 1, 000 mls @ 84 mls/hr IV.CONT .[id number] [facility] Stop: 12/12/18 17:48 Last Admin: 12/12/18 09:45 Dose: 84 mls/hr Levothyroxine Sodium (Synthroid) 100 mcg PO DAILY@0600 [facility] Last Admin: 12/12/18 05:29 Dose: 100 mcg Methylnaltrexone [place] (Relistor) 12 mg SQ ONCE ONE Stop: 12/12/18 14:47 Metoclopramide HCl (Reglan Inj) 5 mg IV.PUSH Q8H [facility]; Protocol Ondansetron HCl (Zofran Inj) 4 mg IV.PUSH Q6H PRN PRN Reason: NAUSEA OR VOMITING Pantoprazole Sodium (Protonix Inj) 40 mg IV.PUSH Q12H [facility] Last Admin: 12/12/18 05:29 Dose: 40 mg Polyethylene Glycol (Miralax) 17 gm PO DAILY [facility] Pravastatin Sodium (Pravachol) 20 mg PO QPM [facility] Last Admin: 12/11/18 17:30 Dose: 20 mg Senna/Docusate Sodium (Melissa-Colace) 1 tab PO BID [facility] Last Admin: 12/12/18 08:00 Dose: 1 tab Simethicone (Phazyme Chew) 125 mg PO TID [facility] Last Admin: 12/12/18 13:12 Dose: 125 mg Sodium Chloride (Ns Flush) 2 ml IV.FLUSH BID [facility] Last Admin: 12/12/18 08:02 Dose: 2 ml Sodium Chloride (Ns Flush) 2 ml IV.FLUSH PRN PRN PRN Reason: FLUSH AFTER USING IV ACCESS Tamsulosin HCl (Flomax) 0.4 mg PO HS [facility] Last Admin: 12/11/18 21:36 Dose: 0.4 mg <Nalini Lopez - Last Filed: 12/12/18 15:31> Active Medications: Active Medications Acetaminophen (Tylenol) 650 mg PO Q4H PRN PRN Reason: Temp > 100.4 Al Hydroxide/Mg Hydroxide (Milk Of Magnesia Liq) 30 ml PO Q12H PRN PRN Reason: Mild Constipation Diltiazem HCl (Cardizem Cd 24hr) 240 mg PO DAILY [facility] Last Admin: 12/12/18 08:01 Dose: 240 mg Potassium Chloride/Sodium Chloride (Potassium Chlor 20 Meq/Nacl 0.45% Inj) 1, 000 mls @ 84 mls/hr IV.CONT .[id number] [facility] Stop: 12/12/18 17:48 Last Admin: 12/12/18 09:45 Dose: 84 mls/hr Levothyroxine Sodium (Synthroid) 100 mcg PO DAILY@0600 [facility] Last Admin: 12/12/18 05:29 Dose: 100 mcg Magnesium Citrate (Citroma Liq) 300 ml PO ONCE ONE Stop: 12/12/18 16:01 Methylnaltrexone [place] (Relistor) 12 mg SQ ONCE ONE Stop: 12/12/18 16:01 Metoclopramide HCl (Reglan Inj) 5 mg IV.PUSH Q8H [facility]; Protocol Ondansetron HCl (Zofran Inj) 4 mg IV.PUSH Q6H PRN PRN Reason: NAUSEA OR VOMITING Pantoprazole Sodium (Protonix Inj) 40 mg IV.PUSH Q12H [facility] Last Admin: 12/12/18 05:29 Dose: 40 mg Polyethylene Glycol (Miralax) 17 gm PO DAILY [facility] Pravastatin Sodium (Pravachol) 20 mg PO QPM [facility] Last Admin: 12/11/18 17:30 Dose: 20 mg Senna/Docusate Sodium (Melissa-Colace) 1 tab PO BID [facility] Last Admin: 12/12/18 08:00 Dose: 1 tab Simethicone (Phazyme Chew) 125 mg PO TID [facility] Last Admin: 12/12/18 13:12 Dose: 125 mg Sodium Chloride (Ns Flush) 2 ml IV.FLUSH BID [facility] Last Admin: 12/12/18 08:02 Dose: 2 ml Sodium Chloride (Ns Flush) 2 ml IV.FLUSH PRN PRN PRN Reason: FLUSH AFTER USING IV ACCESS Tamsulosin HCl (Flomax) 0.4 mg PO HS [facility] Last Admin: 12/11/18 21:36 Dose: 0.4 mg <Sharif Mack - Last Filed: 12/12/18 15:50> Allergies Allergy/AdvReac Type Severity Reaction Status Date / Time No Known Allergies Allergy Verified 12/09/18 10:37 Home Medications Medication Instructions Recorded Confirmed Type diltiazem HCl 240 mg PO DAILY 12/06/18 12/09/18 History levothyroxine 100 mcg PO DAILY 12/06/18 12/09/18 History simvastatin 10 mg PO QPM 12/06/18 12/09/18 History tamsulosin 0.4 mg PO HS 12/06/18 12/09/18 History Exam Vital signs: Vital Signs 12/11/18 16:00 12/11/18 20:00 12/12/18 00:00 Temperature 97.8 F 98.7 F 98.8 F Pulse Rate 78 75 77 Respiratory Rate 18 18 18 Blood Pressure 133/63 126/68 126/64 Pulse Oximetry 95 94 L 96 12/12/18 04:00 12/12/18 08:00 Temperature 98.5 F 98.0 F Pulse Rate 75 76 Respiratory Rate 18 20 Blood Pressure 123/62 112/62 Pulse Oximetry 94 L 93 L Intake & Output 12/11/18 12/12/18 12/12/18 18:59 06:59 18:59 Intake Total 500 / 500 160 / 160 1000 / 1000 Balance 500 / 500 160 / 160 1000 / 1000 Weight 67.8 kg Intake: IV 1000 / 1000 Potassium Chlor 20 mEq/NACL 0. 1000 / 1000 45% Inj 1,000 ML @ 84 mls/hr IV .CONT .[id number] [facility] Rx#:[id number] Oral 500 / 500 160 / 160 Other: # Voids 4 2 Date of Last Bowel Movement 12/09/18 12/09/18 12/11/18 - Constitutional no acute distress - Routine HEENT Exam Head: Present: normocephalic, atraumatic - Routine Respiratory Exam Absent: accessory muscle use - Routine Abdominal Exam Present: soft, distended. Absent: tenderness Comments: hypoactive bowel sounds - Routine Skin Exam Present: dry, warm - Routine Neurological Exam Present: alert <Nalini Lopez - Last Filed: 12/12/18 15:31> Vital signs: Vital Signs 12/11/18 16:00 12/11/18 20:00 12/12/18 00:00 Temperature 97.8 F 98.7 F 98.8 F Pulse Rate 78 75 77 Respiratory Rate 18 18 18 Blood Pressure 133/63 126/68 126/64 Pulse Oximetry 95 94 L 96 12/12/18 04:00 12/12/18 08:00 Temperature 98.5 F 98.0 F Pulse Rate 75 76 Respiratory Rate 18 20 Blood Pressure 123/62 112/62 Pulse Oximetry 94 L 93 L Intake & Output 12/11/18 12/12/18 12/12/18 18:59 06:59 18:59 Intake Total 500 / 500 160 / 160 1000 / 1000 Balance 500 / 500 160 / 160 1000 / 1000 Weight 67.8 kg Intake: IV 1000 / 1000 Potassium Chlor 20 mEq/NACL 0. 1000 / 1000 45% Inj 1,000 ML @ 84 mls/hr IV .CONT .[id number] [facility] Rx#:[id number] Oral 500 / 500 160 / 160 Other: # Voids 4 2 Date of Last Bowel Movement 12/09/18 12/09/18 12/11/18 <Sharif Mack - Last Filed: 12/12/18 15:50> Results - Labs CBC & Chem 7: 12/12/18 04:14 12/12/18 04:14 Labs: Laboratory Results - last 24 hr 12/09/18 12/12/18 12/12/18 10:50 04:14 04:14 WBC 6.7 RBC 2.38 L Hgb 8.0 L Hct 23.9 L MCV 100.3 H MCH 33.7 MCHC 33.6 RDW 16.6 Plt Count 238 MPV 8.0 Neut % (Auto) 87.1 H Lymph % (Auto) 4.4 L [place] % (Auto) 6.5 Eos % (Auto) 1.4 Baso % (Auto) 0.6 Neut # (Auto) 5.9 Lymph # (Auto) 0.3 L [place] # (Auto) 0.4 Eos # (Auto) 0.1 Baso # (Auto) 0.0 WBC Differential . Differential Comment Auto diff final Sodium 140 Potassium 4.3 Chloride 106 Carbon Dioxide 27.6 Anion Gap 6 BUN 28 H Creatinine 1.64 H Estimated GFR 40 L Random Glucose 108 H Calcium 8.1 L Magnesium 2.6 H MTS Gel Crossmatch See Detail Crossmatch Prewarmed See Detail - Imaging Impressions Abdomen X-Ray 12/12/18 08:00 CONCLUSION: Diffuse gaseous distention of bowel loops again noted. <Nalini Lopez - Last Filed: 12/12/18 15:31> - Labs CBC & Chem 7: 12/12/18 04:14 12/12/18 04:14 Labs: Laboratory Results - last 24 hr 12/09/18 12/12/18 12/12/18 10:50 04:14 04:14 WBC 6.7 RBC 2.38 L Hgb 8.0 L Hct 23.9 L MCV 100.3 H MCH 33.7 MCHC 33.6 RDW 16.6 Plt Count 238 MPV 8.0 Neut % (Auto) 87.1 H Lymph % (Auto) 4.4 L [place] % (Auto) 6.5 Eos % (Auto) 1.4 Baso % (Auto) 0.6 Neut # (Auto) 5.9 Lymph # (Auto) 0.3 L [place] # (Auto) 0.4 Eos # (Auto) 0.1 Baso # (Auto) 0.0 WBC Differential . Differential Comment Auto diff final Sodium 140 Potassium 4.3 Chloride 106 Carbon Dioxide 27.6 Anion Gap 6 BUN 28 H Creatinine 1.64 H Estimated GFR 40 L Random Glucose 108 H Calcium 8.1 L Magnesium 2.6 H MTS Gel Crossmatch See Detail Crossmatch [place] See Detail - Imaging Impressions Abdomen X-Ray 12/12/18 08:00 CONCLUSION: Diffuse gaseous distention of bowel loops again noted. <Sharif Mack - Last Filed: 12/12/18 15:50> Assessment and Plan - Plan Assessment: Constipation and distended bowel seen on imaging- Pt presented to ER with complaints of diffuse abdominal pain, constant with intermittent increasing intensity. Denies nausea, vomiting. Has chronic constipation, has to strain to have a BM. Does not take anything for this. Denies unintentional weight loss. Does not think he has ever had a colonoscopy. No known family history of colon cancer. 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 Aneurysm extends over a 12 cm length. No infrarenal component. Small moderate- sized bilateral pleural effusions with concomitant atelectatic changes in the left base. Small bilateral inguinal hernias only containing fat. Scattered diverticula throughout the colon without diverticulitis. Mural thickening of the gastric fundus. Findings are nonspecific. Can be associated with gastritis or simple gastric decompression. Neoplasm cannot be excluded. KUB (12/12) Diffuse gaseous distention of bowel loops again noted. Pt has been given Melissa-Colace and Dulcolax suppository with no relief. He has Relistor, Reglan and Milk of Magnesia ordered but these have not yet been administered Plan: Mag Citrate x 1 Relistor Enema KUB in AM Can do colonoscopy if no relief with medical management, but given large aneurysm would be high risk Pt is a DNR Further recommendations to follow This patient has been seen and examined by myself and Dr. Mack and this note is written on his behalf <Nalini Lopez - Last Filed: 12/12/18 15:31> - Plan Seen and examined with PHYSICIAN CREDENTIALING SPECIALIST, reports small BM yesterday, +ve flatus. CT -ve for obstruction. Will try laxatives PO and enemas, if no response will consider colonoscopy but would be high risk for sedation. Discussed with pt. Thank you <Sharif Mack - Last Filed: 12/12/18 15:50>
[2018-12-12] MEDS ORDERED: Magnesium Citrate Liq 300 ML Bottle PO ONE (16:00)
[2018-12-12] MEDS ORDERED: Methylnaltrexone Inj 12 MG/0.6 ML Vial SQ ONE (16:00)
[2018-12-12] MEDS: Polyethylene Glycol 3350 17 GM Packet PO SCH (16:07)
[2018-12-13] MEDS: Pantoprazole Inj 40 MG Vial IV.PUSH SCH ×2 (03:42→16:47)
[2018-12-13] MEDS: Levothyroxine 100 MCG Tablet PO SCH (06:22)
--- NOTE | 2018-12-13 09:09 | XR ---
EXAM DATE: 12/13/2018 9:05 AM EST AGE/SEX: 88 years / Male INDICATIONS: Abdominal pain and distention. CLINICAL DATA: This is the patient's subsequent encounter. Patient reports that signs and symptoms h ave been present for 4 - 6 days and indicates a pain score of 4/10. MEDICAL/SURGICAL HISTORY: None. None. COMPARISON: C, ABDOMEN 1V KUB, 12/12/2018. . FINDINGS: There is persistent gaseous distention of small and large bowel loops overlying the abdomen. Overall this is not significantly changed. Osseous structures are intact. CONCLUSION: Stable bowel distention. Electronically signed by: Aj Young MD Board Certified Radiologist 12/13/2018 9:08 AM EST
[2018-12-13] MEDS: Polyethylene Glycol 3350 17 GM Packet PO SCH (09:26)
[2018-12-13] MEDS: Simethicone 125 MG Chew Tablet PO SCH ×3 (09:28→17:00)
[2018-12-13] MEDS: dilTIAZem CD 240 MG Capsule PO SCH (09:28)
[2018-12-13] MEDS: Senna/Docusate Sodium 8.6/50 MG Tablet PO SCH ×2 (09:28→20:32)
--- NOTE | 2018-12-13 11:10 | P.PNIM ---
Subjective Interval history: Pt reports (+) flatus Pt reports BM yesterday. 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 Pt presented to the ED at [facility] [place] on 12/09/18 with complaints of upper abdominal pain and some mild chest discomfort. He states that this morning around 0700 he woke up with abdominal discomfort and some mild left chest pain. - His labs in the ED noted his Hgb 6.6/Hct 20.8 and MCV 105. The anemia has been an ongoing issue for over the last year or so and has been slowly worsening. His most recent outpt labs on 11/30/18 noted Hgb was 6.6 with MCV 107. Pt had been planned for an outpt transfusion but this was unable to be arranged as an outpt last week and when the pt developed the abd pain and chest pain today this prompted the ED evaluation. - He has not had any obvious GIB. Pt has had several outpt negative FOBT and pt was recommended last year to start Procrit which he did not want to do. Pt has declined outpt colonoscopy previously. - Pt does not want any invasive procedures to further evaluate this anemia - Pt had a negative set of CE in the ED. Pt would not want any invasive LHC even if his CE trended up so we will not continue to trend them. - Supportive care - Dr. Miller discussed TAAA with Dr Santoyo. not leaking. pt not interested in any intervention. - narcotics stopped - Pt refused relistor 12/10 relistor( had alot of narcotic pain meds 12/09). - Pt received relistor 12/11, 12/12 - KUB (12/13) --> continued gasseous distension - encourage ambulation - pericolace, reglan, miralax - Case d/w Dr. Mack (12/13) - Pt has AAA. High risk for anesthesia. - Continue conservative measures for bowel distension. decompressive colonoscopy only if fails to improve - daughter updated by phone (12/12). - Case d/w son-in-law, Dr. 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
--- NOTE | 2018-12-13 12:08 | P.PNGI ---
Subjective Interval history: Pt reports liquid stool. Abdomen distended but soft. Would like to continue trying least aggressive treatment before proceeding with colonoscopy, he is high risk. <Nalini Lopez - Last Filed: 12/13/18 12:05> Physical Exam Vital signs: Vital Signs 12/12/18 16:00 12/12/18 19:55 12/12/18 20:00 Temperature 97.8 F 98.2 F Pulse Rate 72 74 66 Respiratory Rate 20 18 Blood Pressure 111/63 116/59 L Pulse Oximetry 96 98 12/12/18 20:38 12/13/18 00:00 12/13/18 00:02 Temperature 98.2 F Pulse Rate 69 79 Respiratory Rate 18 Blood Pressure 117/68 Pulse Oximetry 96 94 L 12/13/18 04:00 12/13/18 08:00 Temperature 97.8 F 97.8 F Pulse Rate 78 86 Respiratory Rate 18 20 Blood Pressure 111/56 L 125/65 Pulse Oximetry 93 L 91 L Intake & Output 12/12/18 12/13/18 12/13/18 18:59 06:59 18:59 Intake Total 1720 / 1720 1360 / 1360 Output Total 150 / 150 Balance 1720 / 1720 1210 / 1210 Weight 69.4 kg Intake: IV 1000 / 1000 1000 / 1000 Potassium Chlor 20 mEq/NACL 0. 1000 / 1000 1000 / 1000 45% Inj 1,000 ML @ 84 mls/hr IV .CONT .[id number] [facility] Rx#:[id number] Oral 720 / 720 360 / 360 Output: Urine 150 / 150 Other: # Voids 3 Date of Last Bowel Movement 12/11/18 12/13/18 12/13/18 # Bowel Movements 0 1 - Constitutional no acute distress - Routine HEENT Exam Head: Present: normocephalic, atraumatic - Routine Respiratory Exam Absent: accessory muscle use - Routine Abdominal Exam Present: soft, distended. Absent: tenderness Comments: hypoactive bowel sounds - Routine Skin Exam Present: dry, warm - Routine Neurological Exam Present: alert, oriented X3 <Nalini Lopez - Last Filed: 12/13/18 12:05> Vital signs: Vital Signs 12/12/18 16:00 12/12/18 19:55 12/12/18 20:00 Temperature 97.8 F 98.2 F Pulse Rate 72 74 66 Respiratory Rate 20 18 Blood Pressure 111/63 116/59 L Pulse Oximetry 96 98 12/12/18 20:38 12/13/18 00:00 12/13/18 00:02 Temperature 98.2 F Pulse Rate 69 79 Respiratory Rate 18 Blood Pressure 117/68 Pulse Oximetry 96 94 L 12/13/18 04:00 12/13/18 08:00 Temperature 97.8 F 97.8 F Pulse Rate 78 86 Respiratory Rate 18 20 Blood Pressure 111/56 L 125/65 Pulse Oximetry 93 L 91 L Intake & Output 12/12/18 12/13/18 12/13/18 18:59 06:59 18:59 Intake Total 1720 / 1720 1360 / 1360 Output Total 150 / 150 Balance 1720 / 1720 1210 / 1210 Weight 69.4 kg Intake: IV 1000 / 1000 1000 / 1000 Potassium Chlor 20 mEq/NACL 0. 1000 / 1000 1000 / 1000 45% Inj 1,000 ML @ 84 mls/hr IV .CONT .[id number] [facility] Rx#:[id number] Oral 720 / 720 360 / 360 Output: Urine 150 / 150 Other: # Voids 3 Date of Last Bowel Movement 12/11/18 12/13/18 12/13/18 # Bowel Movements 0 1 <Sharif Mack - Last Filed: 12/13/18 14:01> Results - Labs CBC & Chem 7: 12/12/18 04:14 12/12/18 04:14 Laboratory Results - last 24 hr 12/09/18 10:50 MTS Gel Crossmatch See Detail Crossmatch Prewarmed See Detail - Imaging Impressions Abdomen X-Ray 12/13/18 05:00 CONCLUSION: Stable bowel distention. <Nalini Lopez - Last Filed: 12/13/18 12:05> - Labs CBC & Chem 7: 12/12/18 04:14 12/12/18 04:14 Laboratory Results - last 24 hr 12/09/18 10:50 MTS Gel Crossmatch See Detail Crossmatch Prewarmed See Detail - Imaging Impressions Abdomen X-Ray 12/13/18 05:00 CONCLUSION: Stable bowel distention. <Sharif Mack - Last Filed: 12/13/18 14:01> Assessment and Plan - Plan Assessment: Constipation and distended bowel seen on imaging- Pt presented to ER with complaints of diffuse abdominal pain, constant with intermittent increasing intensity. Denies nausea, vomiting. Has chronic constipation, has to strain to have a BM. Does not take anything for this. Denies unintentional weight loss. Does not think he has ever had a colonoscopy. No known family history of colon cancer. 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 Aneurysm extends over a 12 cm length. No infrarenal component. Small moderate- sized bilateral pleural effusions with concomitant atelectatic changes in the left base. Small bilateral inguinal hernias only containing fat. Scattered diverticula throughout the colon without diverticulitis. Mural thickening of the gastric fundus. Findings are nonspecific. Can be associated with gastritis or simple gastric decompression. Neoplasm cannot be excluded. KUB (12/12) Diffuse gaseous distention of bowel loops again noted. Pt has been given Melissa-Colace and Dulcolax suppository with no relief. He has Relistor, Reglan and Milk of Magnesia ordered but these have not yet been administered (12/13) Reported watery stools. Passing flatus. Abdomen distended but soft. Will try red rectal tube for decompression, pt is high risk for colonoscopy. Plan: Continue bowel regimen Red rectal tube to gravity for decompression KUB in AM Can do colonoscopy if no relief with medical management, but given large aneurysm would be high risk Pt is a DNR Further recommendations to follow This patient has been seen and examined by myself and Dr. Mack and this note is written on his behalf <Nalini Lopez - Last Filed: 12/13/18 12:05> - Plan Seen and examined with [facility], patient reporting liquid stools. Abdomen still distended but non tender. Discussed case with anesthesiologist who recommend colonoscopy only if an emergency due to large aortic aneurysm. Gastrografin enema ordered. Colonoscopy as the last resort. Discussed with DR dunne. <Sharif Mack - Last Filed: 12/13/18 14:01>
[2018-12-13] MEDS ORDERED: Sod Chloride 0.9% Inj 1,000 ML IV.CONT SCH (12:47)
[2018-12-13 17:23] LABS: Bilirubin,Urine Negative (Negative); Clarity,Urine Clear (Clear); Color,Urine Amber (Yellw/Straw); Glucose,Urine (UA) Negative (Negative); Hyaline Casts,Urine 1 /lpf (0-3); Leukocyte Esterase,Urine Negative (Negative); Mucus,Urine Few /lpf (Occasional); Nitrite,Urine Negative (Negative); Specific Gravity,Urine 1.019 (1.002-1.035); Squamous Epithelial Cell,Urine <1 /hpf (0-5)
[2018-12-14] MEDS: Pantoprazole Inj 40 MG Vial IV.PUSH SCH ×2 (03:04→15:37)
[2018-12-14] MEDS: Levothyroxine 100 MCG Tablet PO SCH (05:35)
[2018-12-14] MEDS: Simethicone 125 MG Chew Tablet PO SCH ×3 (08:41→18:08)
[2018-12-14] MEDS: dilTIAZem CD 240 MG Capsule PO SCH (08:41)
[2018-12-14] MEDS: Polyethylene Glycol 3350 17 GM Packet PO SCH (08:41)
[2018-12-14] MEDS: Senna/Docusate Sodium 8.6/50 MG Tablet PO SCH ×2 (08:41→22:10)
--- NOTE | 2018-12-14 10:37 | P.PNIM ---
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 Pt presented to the ED at [facility] on 12/09/18 with complaints of upper abdominal pain and some mild chest discomfort. He states that this morning around 0700 he woke up with abdominal discomfort and some mild left chest pain. - His labs in the ED noted his Hgb 6.6/Hct 20.8 and MCV 105. The anemia has been an ongoing issue for over the last year or so and has been slowly worsening. His most recent outpt labs on 11/30/18 noted Hgb was 6.6 with MCV 107. Pt had been planned for an outpt transfusion but this was unable to be arranged as an outpt last week and when the pt developed the abd pain and chest pain today this prompted the ED evaluation. - He has not had any obvious GIB. Pt has had several outpt negative FOBT and pt was recommended last year to start Procrit which he did not want to do. Pt has declined outpt colonoscopy previously. - Pt does not want any invasive procedures to further evaluate this anemia - Pt had a negative set of CE in the ED. Pt would not want any invasive LHC even if his CE trended up so we will not continue to trend them. - Supportive care - Dr. Miller discussed TAAA with Dr Santoyo. not leaking. pt not interested in any intervention. - narcotics stopped - Pt refused relistor 12/10 relistor( had alot of narcotic pain meds 12/09). - Pt received relistor 12/11, 12/12 - KUB (12/13) --> continued gasseous distension - 12/13 patient refused PT, Red rectal tube to gravity for decompression and Gastrografin enema ordered - encourage ambulation - pericolace, reglan, miralax - Case d/w Dr. Mack (12/13) - Pt has AAA. High risk for anesthesia. - Continue conservative measures for bowel distension. decompressive colonoscopy only if fails to improve - encouraged patient to increase ambulation/activity - reviewed with the importance and reason for Red rectal tube to gravity decompression and Gastrografin enema ordered. Patient now agreeable. - repeat KUB (12/14) pending - daughter updated by phone by Dr. Doherty (12/13). - Case d/w son-in-law, Dr. Stephen in person (12/12) CKD, stage III - Labs appear to be around his baseline Cr 1.7-1.8 on most recent outpt labs - observe HTN - Home meds resumed Hypothyroidism - Home meds resumed Hyperlipidemia - Home meds resumed Attending Attestation The exam, history, and the medical decision-making described in the above note were completed with the assistance of the mid-level provider. I reviewed and agree with the findings presented. I attest that I had a [id number] encounter with the patient on the same day, and personally performed and documented my assessment and findings in the medical record. Patient examined. Assessment and plan formulated with Louisa Cabezas PA-C. I agree with the above. 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
--- NOTE | 2018-12-14 11:44 | P.PNGI ---
Subjective Interval history: Patient seen and examined. Resting in bed. Denies abdominal pain. Denies nausea or vomiting. Has had no bowel movement since yesterday. Has not had a regular bowel movement in 3 days per his account. Tolerating liquid breakfast. Reports decreased appetite. <Sammie Horn - Last Filed: 12/14/18 11:38> Physical Exam Vital signs: Vital Signs 12/13/18 12:00 12/13/18 16:00 12/13/18 16:36 Temperature Pulse Rate 82 72 Respiratory Rate Blood Pressure Pulse Oximetry 94 L 12/13/18 20:00 12/13/18 21:29 12/14/18 00:00 Temperature 97.7 F 98.1 F Pulse Rate 76 81 Respiratory Rate 18 19 Blood Pressure 119/59 L 111/62 Pulse Oximetry 97 95 96 12/14/18 04:00 12/14/18 08:00 Temperature 98.1 F 98.1 F Pulse Rate 81 79 Respiratory Rate 18 18 Blood Pressure 123/61 114/68 Pulse Oximetry 95 94 L Intake & Output 12/13/18 12/14/18 12/14/18 18:59 06:59 18:59 Output Total 425 / 425 Balance -425 / -425 Weight 71 kg Output: Urine 425 / 425 Other: # Voids 4 Date of Last Bowel Movement 12/13/18 12/13/18 12/13/18 # Bowel Movements 0 - Constitutional no acute distress - Routine HEENT Exam Head: Present: normocephalic, atraumatic - Routine Respiratory Exam Absent: accessory muscle use - Routine Cardiovascular Exam Present: RRR - Routine Abdominal Exam Present: soft, normoactive bowel sounds. Absent: tenderness, distended <Sammie Horn - Last Filed: 12/14/18 11:38> Vital signs: Vital Signs 12/13/18 16:00 12/13/18 16:36 12/13/18 20:00 Temperature 97.7 F Pulse Rate 72 76 Respiratory Rate 18 Blood Pressure 119/59 L Pulse Oximetry 94 L 97 12/13/18 21:29 12/14/18 00:00 12/14/18 04:00 Temperature 98.1 F 98.1 F Pulse Rate 81 81 Respiratory Rate 19 18 Blood Pressure 111/62 123/61 Pulse Oximetry 95 96 95 12/14/18 08:00 12/14/18 12:00 Temperature 98.1 F 97.8 F Pulse Rate 79 76 Respiratory Rate 18 18 Blood Pressure 114/68 125/74 Pulse Oximetry 94 L 95 Intake & Output 12/13/18 12/14/18 12/14/18 18:59 06:59 18:59 Output Total 425 / 425 Balance -425 / -425 Weight 71 kg Output: Urine 425 / 425 Other: # Voids 4 Date of Last Bowel Movement 12/13/18 12/13/18 12/13/18 # Bowel Movements 0 <Sharif Mack - Last Filed: 12/14/18 14:23> Results - Labs CBC & Chem 7: 12/12/18 04:14 12/12/18 04:14 Laboratory Results - last 24 hr 12/13/18 16:20 Urine Color Penelope Urine Clarity Clear Urine pH 5.0 Ur Specific [place] 1.019 Urine Protein Negative Urine Glucose (UA) Negative Urine Ketones Negative Urine Occult Blood Negative Urine Nitrate Negative Urine Bilirubin Negative Urine Urobilinogen Less than 2 Ur Leukocyte Esterase Negative Urine RBC 1 Urine WBC 1 Ur Squamous Epith Cells <1 Hyaline Casts 1 Urine Mucus Few H Micro UA Comment Culture not ind Ur Microscopic Review Not Reportable Urine Culture Comments Culture not ind <Sammie Horn - Last Filed: 12/14/18 11:38> - Labs CBC & Chem 7: 12/12/18 04:14 12/12/18 04:14 Laboratory Results - last 24 hr 12/13/18 16:20 Urine Color [place] Urine Clarity Clear Urine pH 5.0 Ur Specific [place] 1.019 Urine Protein Negative Urine Glucose (UA) Negative Urine Ketones Negative Urine Occult Blood Negative Urine Nitrate Negative Urine Bilirubin Negative Urine Urobilinogen Less than 2 Ur Leukocyte Esterase Negative Urine RBC 1 Urine WBC 1 Ur Squamous Epith Cells <1 Hyaline Casts 1 Urine Mucus Few H Micro UA Comment Culture not ind Ur Microscopic Review Not Reportable Urine Culture Comments Culture not ind <Sharif Mack - Last Filed: 12/14/18 14:23> Assessment and Plan - Plan Assessment: Constipation and distended bowel seen on imaging- 12/14/18 Patient seen and examined. Resting in bed. Denies abdominal pain. Denies nausea or vomiting. Has had no bowel movement since yesterday. Declined rectal tube. Refused Gastrografin enema has not had a regular bowel movement in 3 days per his account. Tolerating liquid breakfast. Reports decreased appetite. KUB has been ordered but not yet performed. Plan: Continue bowel regimen Patient declined red rectal tube to gravity for decompression. Refused Gastrografin enema. Will reconsider if symptoms persist. KUB pending Can do colonoscopy if no relief with medical management, but given large aneurysm would be high risk Pt is a DNR Further recommendations to follow This patient has been seen and examined by myself and Dr. Mack and this note is written on his behalf <Sammie Horn - Last Filed: 12/14/18 11:38> - Plan Seen and examined with SOFTWARE QUALITY AUTOMATION ENGINEER, refusing gastrografin enema and rectal tube. Continue bowel regimen. KUB pending.Advance diet <Sharif Mack - Last Filed: 12/14/18 14:23>
--- NOTE | 2018-12-14 18:01 | XR ---
EXAM DATE: 12/14/2018 5:50 PM EST AGE/SEX: 88 years / Male INDICATIONS: Constipation CLINICAL DATA: This is the patient's subsequent encounter. Patient reports that signs and symptoms h ave been present for 3 days and indicates a pain score of 3/10. MEDICAL/SURGICAL HISTORY: None. None. COMPARISON: [facility], ENEMA W GASTROGRAFIN, 12/13/2018. . FINDINGS: There are numerous gas-filled loops of small and large bowel identified. There is gaseous distention of the sigmoid colon suspected. No significant stool burden seen. CONCLUSION: Multiple gas-filled loops of bowel are identified with mild gaseous distention of the large bowel. Th is is not significantly changed. Electronically signed by: Aj Young MD Board Certified Radiologist 12/14/2018 5:59 PM EST
[2018-12-15 03:31] LABS: Baso % (Auto) 0.9 % (0.0-2.0); Eos # (Auto) 0.3 th/mm3 (0.0-0.4); Eos % (Auto) 5.6 % (0.0-4.0); Hematocrit 22.8 % (39.0-51.0); Hemoglobin 7.5 gm/dL (13.0-17.0); Lymph # (Auto) 0.3 th/mm3 (1.0-4.8); Lymph % (Auto) 5.9 % (9.0-44.0); Mean Corpuscular HGB Conc 32.8 % (32.0-36.0); Mean Corpuscular Hemoglobin 32.6 pg (27.0-34.0); Mean Corpuscular Volume 99.4 fL (80.0-100.0); Mono # (Auto) 0.3 th/mm3 (0.0-0.9); Mono % (Auto) 6.5 % (0.0-8.0); Neut # (Auto) 4.2 th/mm3 (1.8-7.7); Neut % (Auto) 81.1 % (16.0-70.0); Platelet Count 250 th/mm3 (150-450); Red Blood Count 2.29 mil/mm3 (4.50-5.90); Red Cell Distribution Width 15.1 % (11.6-17.2); White Blood Count 5.2 th/mm3 (4.0-11.0)
[2018-12-15 04:05] LABS: Calcium 7.7 mg/dL (8.5-10.1); Magnesium 2.6 mg/dL (1.5-2.5); Potassium 4.2 meq/L (3.5-5.1)
[2018-12-15] MEDS: Levothyroxine 100 MCG Tablet PO SCH (05:06)
[2018-12-15] MEDS: Pantoprazole Inj 40 MG Vial IV.PUSH SCH ×2 (05:06→17:34)
[2018-12-15] MEDS: Simethicone 125 MG Chew Tablet PO SCH ×3 (08:24→17:33)
[2018-12-15] MEDS: Senna/Docusate Sodium 8.6/50 MG Tablet PO SCH ×2 (08:24→21:51)
[2018-12-15] MEDS: Polyethylene Glycol 3350 17 GM Packet PO SCH (08:24)
[2018-12-15] MEDS: dilTIAZem CD 240 MG Capsule PO SCH (08:24)
[2018-12-15] MEDS ORDERED: Sodium Chlor 0.9% Inj 250 ML IV.SIG SCH (10:00)
--- NOTE | 2018-12-15 11:28 | P.PNGI ---
Subjective Interval history: Patient is resting in bed. States that he feels like he needs to get up but does not want to do this yet. Denies any nausea or vomiting. He did not have breakfast because he slept through it. There is a bowel movement documented in his chart. Patient reports he has been passing flatus. Denies any abdominal pain or distention. <Nalini Lopez - Last Filed: 12/15/18 11:25> Physical Exam Vital signs: Vital Signs 12/14/18 12:00 12/14/18 16:00 12/14/18 20:00 Temperature 97.8 F 97.6 F 97.9 F Pulse Rate 76 67 76 Respiratory Rate 18 18 17 Blood Pressure 125/74 127/76 133/68 Pulse Oximetry 95 98 97 12/15/18 00:00 12/15/18 04:00 12/15/18 08:00 Temperature 98.1 F 97.8 F 97.9 F Pulse Rate 81 83 60 Respiratory Rate 17 17 18 Blood Pressure 132/69 134/72 135/72 Pulse Oximetry 93 L 95 95 Intake & Output 12/14/18 12/15/18 12/15/18 18:59 06:59 18:59 Intake Total 1480 / 1480 920 / 920 Output Total 200 / 200 Balance 1480 / 1480 720 / 720 Weight 72 kg Intake: IV 1000 / 1000 NS Inj 1,000 ML @ 42 mls/hr IV. 1000 / 1000 CONT .[id number] [facility] Rx#:[id number] Oral 480 / 480 920 / 920 Output: Urine 200 / 200 Other: # Voids 3 3 Date of Last Bowel Movement 12/13/18 12/14/18 12/14/18 # Bowel Movements 1 1 - Constitutional no acute distress - Routine HEENT Exam Head: Present: normocephalic, atraumatic - Routine Respiratory Exam Absent: accessory muscle use - Routine Abdominal Exam Present: soft, normoactive bowel sounds, distended. Absent: tenderness - Routine Skin Exam Present: dry, warm - Routine Neurological Exam Present: alert, oriented X3 <Nalini Lopez - Last Filed: 12/15/18 11:25> Vital signs: Vital Signs 12/14/18 20:00 12/15/18 00:00 12/15/18 04:00 Temperature 97.9 F 98.1 F 97.8 F Pulse Rate 76 81 83 Respiratory Rate 17 17 17 Blood Pressure 133/68 132/69 134/72 Pulse Oximetry 97 93 L 95 12/15/18 08:00 12/15/18 11:59 Temperature 97.9 F 97.9 F Pulse Rate 60 75 Respiratory Rate 18 18 Blood Pressure 135/72 129/69 Pulse Oximetry 95 95 Intake & Output 12/14/18 12/15/18 12/15/18 18:59 06:59 18:59 Intake Total 1480 / 1480 920 / 920 Output Total 200 / 200 Balance 1480 / 1480 720 / 720 Weight 72 kg Intake: IV 1000 / 1000 NS Inj 1,000 ML @ 42 mls/hr IV. 1000 / 1000 CONT .[id number] [facility] Rx#:[id number] Oral 480 / 480 920 / 920 Output: Urine 200 / 200 Other: # Voids 3 3 Date of Last Bowel Movement 12/13/18 12/14/18 12/14/18 # Bowel Movements 1 1 <Sharif Mack - Last Filed: 12/15/18 17:08> Results - Labs CBC & Chem 7: 12/15/18 02:34 12/15/18 02:34 Laboratory Results - last 24 hr 12/15/18 12/15/18 02:34 02:34 WBC 5.2 RBC 2.29 L Hgb 7.5 L Hct 22.8 L MCV 99.4 MCH 32.6 MCHC 32.8 RDW 15.1 Plt Count 250 MPV 8.0 Neut % (Auto) 81.1 H Lymph % (Auto) 5.9 L Dawson % (Auto) 6.5 Eos % (Auto) 5.6 H Baso % (Auto) 0.9 Neut # (Auto) 4.2 Lymph # (Auto) 0.3 L Dawson # (Auto) 0.3 Eos # (Auto) 0.3 Baso # (Auto) 0.0 WBC Differential . Differential Comment Auto diff final Sodium 140 Potassium 4.2 Chloride 108 H Carbon Dioxide 26.0 Anion Gap 6 BUN 21 H Creatinine 1.42 H Estimated GFR 47 L Random Glucose 106 Calcium 7.7 L Magnesium 2.6 H - Imaging Impressions Abdomen X-Ray 12/14/18 08:00 CONCLUSION: Multiple gas-filled loops of bowel are identified with mild gaseous distention of the large bowel. This is not significantly changed. <Nalini Lopez - Last Filed: 12/15/18 11:25> - Labs CBC & Chem 7: 12/15/18 02:34 12/15/18 02:34 Laboratory Results - last 24 hr 12/15/18 12/15/18 12/15/18 02:34 02:34 13:36 WBC 5.2 RBC 2.29 L Hgb 7.5 L Hct 22.8 L MCV 99.4 MCH 32.6 MCHC 32.8 RDW 15.1 Plt Count 250 MPV 8.0 Neut % (Auto) 81.1 H Lymph % (Auto) 5.9 L Dawson % (Auto) 6.5 Eos % (Auto) 5.6 H Baso % (Auto) 0.9 Neut # (Auto) 4.2 Lymph # (Auto) 0.3 L Dawson # (Auto) 0.3 Eos # (Auto) 0.3 Baso # (Auto) 0.0 WBC Differential . Differential Comment Auto diff final Sodium 140 Potassium 4.2 Chloride 108 H Carbon Dioxide 26.0 Anion Gap 6 BUN 21 H Creatinine 1.42 H Estimated GFR 47 L Random Glucose 106 Calcium 7.7 L Magnesium 2.6 H Blood Type O Positive Antibody Screen Positive Ab Screen Tube Method Positive H Crossmatch See Detail - Imaging Impressions Abdomen X-Ray 12/14/18 08:00 CONCLUSION: Multiple gas-filled loops of bowel are identified with mild gaseous distention of the large bowel. This is not significantly changed. <Sharif Mack - Last Filed: 12/15/18 17:08> Assessment and Plan - Plan Assessment: Constipation and distended bowel seen on imaging- 12/14/18 Patient seen and examined. Resting in bed. Denies abdominal pain. Denies nausea or vomiting. Has had no bowel movement since yesterday. Declined rectal tube. Refused Gastrografin enema has not had a regular bowel movement in 3 days per his account. Tolerating liquid breakfast. Reports decreased appetite. KUB --> bowel distention (12/15/18) KUB from yesterday shows multiple gas-filled loops of bowel identified with mild gaseous distention of the large bowel. Not significantly changed from prior exams. Patient is on a good bowel regimen. He has had a Gastrografin enema ordered which she has refused. Rectal tube was ordered which he also refused. Patient is currently on clear liquid diet has a poor appetite , he has refused multiple meals. Patient is at too high risk of a colonoscopy due to the size of patient's aneurysm. Likely, he will also refused prep for colonoscopy. At this time her recommendations remain Gastrografin enema if patient is compliant. Continue current bowel regimen and advance patient's diet as tolerated. Our service will sign off as patient is refusing multiple treatments. Please reconsult as needed. Plan: Continue bowel regimen Continue Reglan Gastrografin enema if patient agrees Advance diet as pt tolerates Patient has refused multiple treatments, our service will sign off, please reconsult as needed Have patient follow-up with GI in 1-2 weeks after discharge This patient has been seen and examined by myself and Dr. Mack and this note is written on his behalf <Nalini Lopez - Last Filed: 12/15/18 11:25> - Plan Seen and examined with MACHINE ASSISTANT, after much discussion has agreed to Gastrografin enema. Family at bedside. Discussed with Dr Doherty. <Sharif Mack - Last Filed: 12/15/18 17:08>
--- NOTE | 2018-12-15 15:01 | P.PNIM ---
Subjective Interval history: Pt again refused gastrografin enema both yesterday and today. Pt reports that he is able to tolerate clears, but no BM yesterday or today. Pt's Hg has dropped again from 8.0 (12/12) to 7.5 (12/15). I have ordered 2 units PRBCs. Pt refusing type & cross most of today, but now agreeable. Pt continues to refuse GI w/u and Gastroenterology has now signed off the case. 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 Pt presented to the ED at [facility] on 12/09/18 with complaints of upper abdominal pain and some mild chest discomfort. He states that this morning around 0700 he woke up with abdominal discomfort and some mild left chest pain. - His labs in the ED noted his Hgb 6.6/Hct 20.8 and MCV 105. The anemia has been an ongoing issue for over the last year or so and has been slowly worsening. His most recent outpt labs on 11/30/18 noted Hgb was 6.6 with MCV 107. Pt had been planned for an outpt transfusion but this was unable to be arranged as an outpt last week and when the pt developed the abd pain and chest pain today this prompted the ED evaluation. - He has not had any obvious GIB. Pt has had several outpt negative FOBT and pt was recommended last year to start Procrit which he did not want to do. Pt has declined outpt colonoscopy previously. - Pt does not want any invasive procedures to further evaluate this anemia - Pt had a negative set of CE in the ED. Pt would not want any invasive LHC even if his CE trended up so we will not continue to trend them. - Supportive care - Dr. Miller discussed TAAA with Dr Santoyo. not leaking. pt not interested in any intervention. - narcotics stopped - Pt refused relistor 12/10 relistor( had alot of narcotic pain meds 12/09). - Pt received relistor 12/11, 12/12 - KUB (12/13) --> continued gasseous distension - 12/13 patient refused PT, Red rectal tube to gravity for decompression and Gastrografin enema ordered - encourage ambulation - pericolace, reglan, miralax - will try one bottle of Magnesium Citrate (12/15) - again encourage gastrograffin enema (12/15) - Case d/w Dr. Mack (12/13) - Pt has AAA. High risk for anesthesia. - Continue conservative measures for bowel distension. decompressive colonoscopy only if fails to improve - encouraged patient to increase ambulation/activity - Each day that I have seen Mr. Smith this week he is lying in bed. Refusing OOB to chair. - Pt is NON compliant with medical treatment plan - I met in person with pt's daughter, Donna, and son-in-law, Dr. Oconnor. - Family can NOT bring Mr. Smith to their home. Pt not safe for discharge to home alone. 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
[2018-12-15] MEDS ORDERED: Magnesium Citrate Liq 300 ML Bottle PO ONE (16:00)
[2018-12-15] MEDS ORDERED: Diatrizoate Meglum/Diatrizoate Sod Liq 120 ML Bottle (for RAD diag) RECTAL ONE (17:00)
--- NOTE | 2018-12-15 17:49 | FL ---
EXAM DATE: 12/15/2018 5:38 PM EST AGE/SEX: 88 years / Male INDICATIONS: Constipation. CLINICAL DATA: This is the patient's initial encounter. Patient reports that signs and symptoms have been present for 4 - 6 days and indicates a pain score of 4/10. MEDICAL/SURGICAL HISTORY: None. None. COMPARISON: [facility], ABDOMEN 1V KUB, 12/14/2018. . FLUORO TIME: 4 IMAGE COUNT: 10 RADIATION DOSE: 1443.23 DAP FINDINGS: Preliminary film shows diffuse air distention of the colon and small bowel loops characteristic of a hypodynamic ileus. No findings of obstruction.. Under fluoroscopic guidance a Gastrografin enema was performed with free flow of contrast to the ceca l tip. Colon is quite tortuous and there is some diverticular disease of the sigmoid without fluorosc opic findings of diverticulitis. There is no significant retained stool within the colon. Patient ref used the postevacuation images. CONCLUSION: 1. 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 2. No significant retained stool within the colon. 3. Mild, diffuse air distention of the colon and small bowel loops in a pattern characteristic of a hypodynamic ileus. Electronically signed by: Dayday Griffin MD Board Certified Radiologist 12/15/2018 5:48 PM EST
[2018-12-16 04:14] LABS: Baso # (Auto) 0.1 th/mm3 (0.0-0.2); Baso % (Auto) 0.7 % (0.0-2.0); Eos # (Auto) 0.1 th/mm3 (0.0-0.4); Eos % (Auto) 1.1 % (0.0-4.0); Hemoglobin 10.2 gm/dL (13.0-17.0); Lymph # (Auto) 0.2 th/mm3 (1.0-4.8); Lymph % (Auto) 2.5 % (9.0-44.0); Mean Corpuscular HGB Conc 33.9 % (32.0-36.0); Mean Corpuscular Hemoglobin 31.7 pg (27.0-34.0); Mean Corpuscular Volume 93.5 fL (80.0-100.0); Mean Platelet Volume 7.7 fL (7.0-11.0); Mono # (Auto) 0.5 th/mm3 (0.0-0.9); Mono % (Auto) 6.7 % (0.0-8.0); Neut # (Auto) 6.7 th/mm3 (1.8-7.7); Platelet Count 298 th/mm3 (150-450); Red Blood Count 3.21 mil/mm3 (4.50-5.90); Red Cell Distribution Width 17.3 % (11.6-17.2); White Blood Count 7.6 th/mm3 (4.0-11.0)
[2018-12-16 04:29] LABS: Carbon Dioxide 26.9 meq/L (21.0-32.0); Magnesium 2.5 mg/dL (1.5-2.5)
[2018-12-16] MEDS: Pantoprazole Inj 40 MG Vial IV.PUSH SCH (05:00)
[2018-12-16] MEDS: Levothyroxine 100 MCG Tablet PO SCH (05:00)
[2018-12-16 09:47] VITALS: RESP 16
--- NOTE | 2018-12-16 10:09 | P.PNIM ---
Subjective Interval history: Pt has been lying in bed all week. Generally refusing OOB to chair or ambulation. On several occasions, pt refused physical therapy. Pt underwent Gastrografin enema yesterday (12/15) No significant retained stool. Diffuse distension of the colon & small bowel loops. I was called this morning [facility] at approximately 8AM. Pt fell in his room and struck his head. Pt answering questions appropriately. Pt found to be hypotensive with SBP in the 60s. Other vitals stable. Pt bolused one liter of fluid. When I examined pt, he was c/o chest pain. Stat EKG ordered and did NOT show acute ischemic changes. troponin, CKMB ordered. Pt placed on telemetry. SBP in the 80s after initial 1 liter fluid bolus. Additional 1 liter fluid bolus ordered. 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 Generally refusing OOB to chair or ambulation. On several occasions, pt refused physical therapy. Pt underwent Gastrografin enema yesterday (12/15) No significant retained stool. Diffuse distension of the colon & small bowel loops. I was called this morning by [facility] nurse at approximately 8AM. Pt fell in his room and struck his head. Pt answering questions appropriately. Pt found to be hypotensive with SBP in the 60s. Other vitals stable. Pt bolused one liter of fluid. When I examined pt, he was c/o chest pain. Stat EKG ordered and did NOT show acute ischemic changes. troponin, CKMB ordered. Pt placed on telemetry. SBP in the 80s after initial 1 liter fluid bolus. Additional 1 liter fluid bolus ordered. - suspect volume depletion - Hg increased 7.5 (12/15) to 10.2 (12/16) - continue volume resuscitation - await labs - pt appears comfortable overall at this time - CBC, BMP from this AM basically stable - CT head once blood pressure improved Worsening, symptomatic anemia Atypical chest pain Abdominal pain Ileus/constipation/excess gas Elevated LFTs - Pt is an 88 y/o WM with HTN, hyperlipidemia, hypothyroidism, CKD stage 3, anemia and peripheral neuropathy. Pt presented to the ED at [facility] on 12/09/18 with complaints of upper abdominal pain and some mild chest discomfort. He states that this morning around 0700 he woke up with abdominal discomfort and some mild left chest pain. - His labs in the ED noted his Hgb 6.6/Hct 20.8 and MCV 105. The anemia has been an ongoing issue for over the last year or so and has been slowly worsening. His most recent outpt labs on 11/30/18 noted Hgb was 6.6 with MCV 107. Pt had been planned for an outpt transfusion but this was unable to be arranged as an outpt last week and when the pt developed the abd pain and chest pain today this prompted the ED evaluation. - He has not had any obvious GIB. Pt has had several outpt negative FOBT and pt was recommended last year to start Procrit which he did not want to do. Pt has declined outpt colonoscopy previously. - Pt does not want any invasive procedures to further evaluate this anemia - Pt had a negative set of CE in the ED. Pt would not want any invasive LHC even if his CE trended up so we will not continue to trend them. - Supportive care - Dr. Miller discussed TAAA with Dr Santoyo. not leaking. pt not interested in any intervention. - narcotics stopped - Pt refused relistor 12/10 relistor( had alot of narcotic pain meds 12/09). - Pt received relistor 12/11, 12/12 - KUB (12/13) --> continued gasseous distension - 12/13 patient refused PT, Red rectal tube to gravity for decompression and Gastrografin enema ordered - encourage ambulation - pericolace, reglan, miralax - will try one bottle of Magnesium Citrate (12/15) - again encourage gastrograffin enema (12/15) - Case d/w Dr. Mack (12/13) - Pt has AAA. High risk for anesthesia. - Continue conservative measures for bowel distension. decompressive colonoscopy only if fails to improve - encouraged patient to increase ambulation/activity - Each day that I have seen Mr. Smith this week he is lying in bed. Refusing OOB to chair. - Pt is NON compliant with medical treatment plan - I met in person with pt's daughter, Donna, and son-in-law, Dr. Oconnor. (12/15) - Family can NOT bring Mr. Smith to their home. Pt not safe for discharge to home alone. 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
[2018-12-16 10:39] LABS: Creatine Kinase 63 U/L (39-308)
--- NOTE | 2018-12-16 10:56 | XR ---
EXAM DATE: 12/16/2018 10:32 AM EST AGE/SEX: 88 years / Male INDICATIONS: Chest pain. CLINICAL DATA: This is the patient's subsequent encounter. Patient reports that signs and symptoms h ave been present for 2 days and indicates a pain score of 0/10. MEDICAL/SURGICAL HISTORY: None. None. COMPARISON: [facility], CHEST 1V SINGLE AP, 12/09/2018. . FINDINGS: There is patchy parenchymal consolidation in the right mid and lower lung and also the left base. Sma ll, bilateral pleural effusions are present. These findings are all new. No pneumothorax. Heart size stable, upper limits of normal. Aneurysm of the descending thoracic aorta can be vaguely s een, grossly without change. CONCLUSION: Patchy bilateral consolidation has developed. There are also small, bilateral pleural effusions. Upper limits of normal heart size, similar to before. Descending thoracic aortic aneurysm again vague ly seen. Electronically signed by: Jason Lawrence MD Board Certified Radiologist 12/16/2018 10:54 AM EST
[2018-12-16 12:35] VITALS: BP 102/70; PULSE 86; TEMP 97.1; O2SAT 99
[2018-12-16] MEDS: dilTIAZem CD 240 MG Capsule PO SCH (13:18)
[2018-12-16] MEDS: Senna/Docusate Sodium 8.6/50 MG Tablet PO SCH (13:19)
[2018-12-16] MEDS: Polyethylene Glycol 3350 17 GM Packet PO SCH (13:19)
[2018-12-16] MEDS: Simethicone 125 MG Chew Tablet PO SCH (13:19)
--- NOTE | 2018-12-16 18:35 | P.DN ---
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
--- NOTE | 2018-12-16 18:43 | P.DN ---
Provider Primary care physician: Golden Faria MD, PhD Consults: 12/09/18 16:18 Consult to Vascular Surgery Routine Consulting Provider: Nabil Kingsley Preferred Wire Coating Machine Operator:: Nabil Kingsley Reason for Consultation: i spoke to dr kingsley. aortic aneurysm Notified:: Physician Spoke with:: Date Notified:: 12/09/18 Time Notified:: 16:31 Ordering Provider: NATALIE 12/12/18 14:46 Consult to Gastroenterology Routine Consulting Provider: Sharif Mack Preferred Wire Coating Machine Operator:: Sharif Mack Reason for Consultation: ileus possible decompressive colonoscopy Notified:: Office Spoke with:: Lili Date Notified:: 12/12/18 Time Notified:: 14:56 Ordering Provider: KALEN 12/14/18 16:00 HUB Only Consult Order Routine Consulting Provider: Blekko Jamal,[employer] 12/15/18 14:08 HUB Only Consult Order Routine Consulting Provider: Vero SmithAgency Date and Time Date of admission: 12/09/18 13:14 Summary Brief History: Mr. Smith is a pleasant 88 y/o WM with HTN, hyperlipidemia, hypothyroidism, CKD stage 3, anemia and peripheral neuropathy. Pt presented to the ED at [facility] on 12/09/18 with complaints of upper abdominal pain and some mild chest discomfort. He states that this morning around 0700 he woke up with abdominal discomfort but unable to really describe the pain. He does not feel that the abdomen is more distended than usual. Denies any nausea/vomiting, diarrhea, constipation, fevers or chills. He reports a weight loss of around 20lbs over the last year or so but reports that he does not eat much. He states that he urinates frequently but this is a chronic issue. His chest discomfort is mild on the left side of the chest which does not radiate but it is reproducible with palpation of the chest wall. His labs in the ED noted his Hgb 6.6/Hct 20.8 and MCV 105. The anemia has been an ongoing issue for over the last year or so and has been slowly worsening. His most recent outpt labs on 11/30 noted Hgb was 6.6 with MCV 107. Pt had been planned for an outpt transfusion but this was unable to be arranged as an outpt last week and when the pt developed the abd pain and chest pain today this prompted the ED evaluation. Pt has had several negative FOBT and pt was recommended last year to start Procrit which he did not want to do. Pt has noted increased fatigue with ambulation. Pt denies any palpitations, dizziness, or SOB. Pt has declined outpt colonoscopy previously. Past Medical Hx: HTN Hyperlipidemia Hypothyroidism CKD, stage 3 Anemia Peripheral neuropathy BPH BPV Hx of skin cancer Spinal stenosis Past Surgical Hx: Cataract surgery bilaterally with Dr. Romeo Skin cancer removal Family Hx: Noncontributory Social Hx: Denies any alcohol, tobacco or illicit drug use Result Diagrams: 12/16/18 03:41 12/16/18 03:41 Significant Findings: Abnormal Lab Results 12/09/18 12/15/18 12/16/18 10:50 13:36 03:41 WBC 7.6 RBC 3.21 L Hgb 10.2 L D Hct 30.0 L MCV 93.5 D MCH 31.7 MCHC 33.9 RDW 17.3 H Plt Count 298 MPV 7.7 Neut % (Auto) 89.0 H Lymph % (Auto) 2.5 L [place] % (Auto) 6.7 Eos % (Auto) 1.1 Baso % (Auto) 0.7 Neut # (Auto) 6.7 Lymph # (Auto) 0.2 L [place] # (Auto) 0.5 Eos # (Auto) 0.1 Baso # (Auto) 0.1 WBC Differential . Differential Comment Auto diff final Hematology Comments Sodium Potassium Chloride Carbon Dioxide Anion Gap BUN Creatinine Estimated GFR POC Glucose Random Glucose Calcium Magnesium Total Creatine Kinase Troponin I Blood Type O Positive Antibody Screen Positive Ab Screen Tube Method Positive H Crossmatch See Detail MTS Gel Crossmatch See Detail Crossmatch Prewarmed See Detail 12/16/18 12/16/18 12/16/18 03:41 03:41 08:17 WBC RBC Hgb Cancelled Hct Cancelled MCV MCH MCHC RDW Plt Count MPV Neut % (Auto) Lymph % (Auto) [place] % (Auto) Eos % (Auto) Baso % (Auto) Neut # (Auto) Lymph # (Auto) [place] # (Auto) Eos # (Auto) Baso # (Auto) WBC Differential Differential Comment Hematology Comments Cancelled Sodium 142 Potassium 4.0 Chloride 107 Carbon Dioxide 26.9 Anion Gap 8 BUN 22 H Creatinine 1.58 H Estimated GFR 42 L POC Glucose 180 H Random Glucose 132 H Calcium 8.0 L Magnesium 2.5 Total Creatine Kinase Troponin I Blood Type Antibody Screen Ab Screen Tube Method Crossmatch MTS Gel Crossmatch Crossmatch Prewarmed 12/16/18 09:49 WBC RBC Hgb Hct MCV MCH MCHC RDW Plt Count MPV Neut % (Auto) Lymph % (Auto) [place] % (Auto) Eos % (Auto) Baso % (Auto) Neut # (Auto) Lymph # (Auto) [place] # (Auto) Eos # (Auto) Baso # (Auto) WBC Differential Differential Comment Hematology Comments Sodium Potassium Chloride Carbon Dioxide Anion Gap BUN Creatinine Estimated GFR POC Glucose Random Glucose Calcium Magnesium Total Creatine Kinase 63 Troponin I Less than 0.02 L Blood Type Antibody Screen Ab Screen Tube Method Crossmatch MTS Gel Crossmatch Crossmatch Prewarmed Hospital Course: Hypotension Fall Chest pain -Pt has been lying in bed all week. Generally refusing OOB to chair or ambulation. On several occasions, pt refused physical therapy. Pt underwent Gastrografin enema yesterday (12/15) No significant retained stool. Diffuse distension of the colon & small bowel loops. I was called this morning by [facility] nurse at approximately 8AM. Pt fell in his room and struck his head. Pt answering questions appropriately. Pt found to be hypotensive with SBP in the 60s. Other vitals stable. Pt bolused one liter of fluid. When I examined pt, he was c/o chest pain. Stat EKG ordered and did NOT show acute ischemic changes. troponin, CKMB --> WNL telemetry --> no ischemia/arrythmia noted SBP in the 80s after initial 1 liter fluid bolus. Additional 1 liter fluid bolus ordered. - suspected volume depletion - Hg increased 7.5 (12/15) to 10.2 (12/16) - continue volume resuscitation - pt appears comfortable overall at this time - CT head once blood pressure improved - case d/w nursing staff at approximately 12:25 - Pt non-responsive and no pulse per nursing. - DNR status - I promptly came to pt room & found that pt had . No pulse. No respirations. - given abrupt onset, c/o chest pain, and normal cardiac enzymes, probable rupture of thoracoabdominal aneurysm, 7.1 by 12 cm length. - condolences given to daughter and son-and-law at bedside Worsening, symptomatic anemia Atypical chest pain Abdominal pain Ileus/constipation/excess gas Elevated LFTs - Pt is an 88 y/o WM with HTN, hyperlipidemia, hypothyroidism, CKD stage 3, anemia and peripheral neuropathy. Pt presented to the ED at [facility] on 12/09/18 with complaints of upper abdominal pain and some mild chest discomfort. He states that this morning around 0700 he woke up with abdominal discomfort and some mild left chest pain. - His labs in the ED noted his Hgb 6.6/Hct 20.8 and MCV 105. The anemia has been an ongoing issue for over the last year or so and has been slowly worsening. His most recent outpt labs on 11/30/18 noted Hgb was 6.6 with MCV 107. Pt had been planned for an outpt transfusion but this was unable to be arranged as an outpt last week and when the pt developed the abd pain and chest pain today this prompted the ED evaluation. - He has not had any obvious GIB. Pt has had several outpt negative FOBT and pt was recommended last year to start Procrit which he did not want to do. Pt has declined outpt colonoscopy previously. - Pt does not want any invasive procedures to further evaluate this anemia - Pt had a negative set of CE in the ED. Pt would not want any invasive LHC even if his CE trended up so we will not continue to trend them. - Supportive care - Dr. Miller discussed TAAA with Dr Kingsley. not leaking. pt not interested in any intervention. - narcotics stopped - Pt refused relistor 12/10 relistor( had alot of narcotic pain meds 12/09). - Pt received relistor 12/11, 12/12 - KUB (12/13) --> continued gasseous distension - 12/13 patient refused PT, Red rectal tube to gravity for decompression and Gastrografin enema ordered - encourage ambulation - pericolace, reglan, miralax - will try one bottle of Magnesium Citrate (12/15) - again encourage gastrograffin enema (12/15) - Case d/w Dr. Mack (12/13) - Pt has AAA. High risk for anesthesia. - Continue conservative measures for bowel distension. decompressive colonoscopy only if fails to improve - encouraged patient to increase ambulation/activity - Each day that I have seen Mr. Smith this week he is lying in bed. Refusing OOB to chair. - Pt is NON compliant with medical treatment plan - I met in person with pt's daughter, Donna, and son-in-law, Dr. Oconnor. (12/15) - Family can NOT bring Mr. Smith to their home. Pt not safe for discharge to home alone. - If pt continues to refuse medical treatment, then plan to discharge to SNF - Hospice would be appropriate - Will further discuss code status with pt/family 12/16 - DVT prophylaxis - supportive care CKD, stage III - Labs appear to be around his baseline Cr 1.7-1.8 on most recent outpt labs - observe HTN - Home meds resumed Hypothyroidism - Home meds resumed Hyperlipidemia - Home meds resumed
--- NOTE | 2018-12-18 03:57 | ECG ---
Date Performed: 12/16/2018 Time Performed: 09:30:42 PTAGE: 88 years EKG: Sinus rhythm with PAC(s). Borderline ECG PREVIOUS TRACING : 12/09/2018 10.41 Since the previous tracing, no significant change noted DOCTOR: Franklin Mackenzie Interpretating Date/Time 12/18/2018 03:56:41
== END 2018-12-16 12:25 | disposition expired | DRG 808 ==
LOC: NEPE 10:26 → NEDA 13:14 → N04 15:55
PROVIDERS: ADMIT Hospitalist; ATTEND Hospitalist
DX: R63.4 Abnormal weight loss; D50.9 Iron deficiency anemia, unspecified; D51.9 Vitamin B12 deficiency anemia, unspecified; D61.9 Aplastic anemia, unspecified; Z91.19 Patient's noncompliance with other medical treatment and regimen; M48.00 Spinal stenosis, site unspecified; I46.2 Cardiac arrest due to underlying cardiac condition; K40.20 Bilateral inguinal hernia, without obstruction or gangrene, not specified as recurrent; K56.7 Ileus, unspecified; Y93.9 Activity, unspecified; M85.80 Other specified disorders of bone density and structure, unspecified site; Z66 Do not resuscitate; E78.5 Hyperlipidemia, unspecified; Y92.230 Patient room in hospital as the place of occurrence of the external cause; D58.9 Hereditary hemolytic anemia, unspecified; R79.89 Other specified abnormal findings of blood chemistry; R07.89 Other chest pain; I12.9 Hypertensive chronic kidney disease with stage 1 through stage 4 chronic kidney disease, or unspecified chronic kidney disease; G62.9 Polyneuropathy, unspecified; I95.9 Hypotension, unspecified; N40.0 Benign prostatic hyperplasia without lower urinary tract symptoms; Z85.828 Personal history of other malignant neoplasm of skin; J90 Pleural effusion, not elsewhere classified; K57.30 Diverticulosis of large intestine without perforation or abscess without bleeding; W18.30XA Fall on same level, unspecified, initial encounter; N18.3 Chronic kidney disease, stage 3 (moderate); Z79.890 Hormone replacement therapy; Z96.1 Presence of intraocular lens; Z53.20 Procedure and treatment not carried out because of patient's decision for unspecified reasons; E03.9 Hypothyroidism, unspecified; Z98.49 Cataract extraction status, unspecified eye; Z87.891 Personal history of nicotine dependence; I71.5 Thoracoabdominal aortic aneurysm, ruptured
CPT/HCPCS: 36415; 36430; 71010; 71045; 74000; 74018; 74177; 74270; 76937; 80048; 80053; 81001; 82248; 82550; 82607; 82728; 82746; 82948; 82962; 83540; 83550; 83615; 83735; 84484; 85014; 85018; 85025; 85044; 85610; 85730; 86077; 86850; 86870; 86880; 86900; 86901; 86920; 86921; 86922; 90774; 90775; 90784; 93005; 96374; 96375; 97110; 97116; 97162; 99285; C8952; C9113; G0001; J1940; J2212; J2270; J2405; J2765; J3480; J7030; J7050; P9016; Q9963; Q9967